=== PATIENT | female | born 1935 | race Caucasian/White ===

== ENCOUNTER 2019-12-27 18:29 | Inpatient (IN) | payer MEDICARE, OTHER ==
--- NOTE | 2019-12-27 20:01 | EDM.PDOC ---
<CatalinaEdgar logan Yolanda - Last Filed: 12/28/19 07:05> ED HPI GENERAL MEDICAL PROBLEM - General Chief Complaint: General Stated Complaint: WEAKNESS Time Seen by Provider: 12/27/19 19:11 Source of Information: Reports: Patient, Family (Daughter, over the phone) History Limitations: Reports: Physical Impairment (Poor historian) - History of Present Illness INITIAL COMMENTS - FREE TEXT/NARRATIVE: Mrs. Rm is a very pleasant 84-year-old woman with a past medical history significant for CAD, status post an HI and a 3-vessel CABG in March 2019, CHF, atrial fibrillation, and colon polyposis, on Eliquis and aspirin, who states that she was feeling well and able to ambulate at 5:30 this morning, but was too weak to ambulate by 6:00. She was seen by her PCP this morning, who ordered a CBC, finding her H/H to be depressed at 7.5/24.0. An outpatient transfusion of a single unit of PRBCs was ordered, however, after the patient was already here, it was discovered that the PRBCs could not be given, due to antibodies. I am told that the blood bank expects to have a compatible unit of PRBCs by tomorrow. The patient was going to be discharged home, however, the staff felt that the patient was too weak to go home, especially since she lives on her own. I spoke with the patient's daughter, who lives in [place], over the phone. She told me that the patient may have been hallucinating last night or this morning, telling her daughter that her furniture had been moved. The patient's daughter does not know if the patient may have moved her own furniture while sleepwalking. She also fell and defecated on herself this morning, requiring the assistance of a relative to clean her up. The daughter states that the patient has not had similar weakness-like symptoms. Here in the ED, the patient's initial BP is found to be modestly elevated at 148/94, otherwise, she is hemodynamically stable, afebrile, saturating 94% on room air. Other than today's weakness, the patient denies having a recent fever, chills, sore throat, ear pain, nasal or sinus congestion, cough, dyspnea, chest pain, palpitations, nausea, vomiting, constipation, diarrhea, abdominal pain, urinary symptoms, recent weight gain or weight loss, recent bloody bowel movements or black bowel movements, recent joint aches, headaches, or rashes. The patient's PCP is Dr. Vivek Rosales. - Related Data Allergies Allergy/AdvReac Type Severity Reaction Status Date / Time amoxicillin Allergy Hives Verified 12/27/19 18:40 Past Medical History HEENT History: Reports: Impaired Vision Cardiovascular History: Reports: Afib, CAD, Heart Failure, High Cholesterol, Hypertension, HI, PVD (bilateral renal artery stenosis) Gastrointestinal History: Reports: Colon Polyp Genitourinary History: Reports: Urinary Incontinence (stress incontinence) Neurological History: Reports: CVA (LLE hemiparesis) Endocrine/Metabolic History: Reports: Other (See Below) (Prediabetes) - Past Surgical History HEENT Surgical History: Reports: Cataract Surgery (bilateral) Cardiovascular Surgical History: Reports: Coronary Artery Bypass (x 3 vessel, Mar 2019), Other (See Below) (Bilateral renal artery stents) GI Surgical History: Reports: Colonoscopy (with polypectomy), EGD (x 1) Female Surgical History: Reports: Section (x 1) Social & Family History - Tobacco Use Smoking Status *Q: Never Smoker - Alcohol Use Alcohol Use History: Yes Alcohol Use Frequency: Rarely - Recreational Drug Use Recreational Drug Use: No - Living Situation & Occupation Living situation: Reports: , Alone Occupation: Retired ED ROS GENERAL - Review of Systems Review Of Systems: Comprehensive ROS is negative, except as noted in HPI. ED EXAM, GENERAL - Physical Exam Exam: See Below Exam Limited By: Other (The patient had difficulty following directions for the neurologic exam, likely due to hard of hearing and misunderstanding) General Appearance: Alert, WD/WN, No Apparent Distress Eye Exam: Bilateral Eye: EOMI, Normal Inspection, PERRL (s/p cataract surgery) Ears: Normal External Exam, Hearing Loss Nose: Normal Inspection Throat/Mouth: Normal Inspection, Normal Lips, Normal Voice, No Airway Compromise Head: Atraumatic, Normocephalic Neck: Normal Inspection, Full Range of Motion Respiratory/Chest: No Respiratory Distress, Lungs Clear, Normal Breath Sounds, No Accessory Muscle Use Cardiovascular: Normal Peripheral Pulses, No Gallop, No JVD, No Murmur, No Rub, Irregularly Irregular (regular rate) Peripheral Pulses: 3+: Radial (L), Radial (R) GI/Abdominal: Normal Bowel Sounds, Soft, Non-Tender, No Organomegaly, No Distention, No Abnormal Bruit, No Mass (Female) Exam: Deferred Rectal (Female) Exam: Normal Exam, Normal Rectal Tone, Heme - Stool Back Exam: Full Range of Motion, Other (Abrasion noted over the midline lower thoracic vertebrae) Extremities: Normal Inspection, Normal Range of Motion, Normal Capillary Refill Neurological: Alert, Oriented, CN II-XII Intact, No Motor/Sensory Deficits, Confused (could be due to PAUMA + misunderstanding) Psychiatric: Normal Affect Skin Exam: Warm, Dry, Intact, Normal Color, No Rash EKG INTERPRETATION EKG Date: 12/27/19 Time: 19:57 Rhythm: A-Fib Rate (Beats/Min): 77 Compton: RAD-Right Compton Deviation P-Wave: Absent QRS: Normal ST-T: Other (< 1mm ST depression in the lateral leads, but no T wave inversions) QT: Normal Comparison: NA - No Prior EKG Course - Re-Assessments/Exams Free Text/Narrative Re-Assessment/Exam: 12/27/19 19:49 As above, the patient states that she was able to walk around at 5:30 this morning, but was too weak to walk by 6:00. She saw her PCP this morning, and had a CBC drawn, which found her Hgb be depressed at 7.5. She was sent here for an outpatient single unit transfusion of PRBCs, however, due to antibodies, she was unable to receive the transfusion. Due to generalized weakness, the staff did not feel that she was fit for discharge home, particularly because she lives alone, therefore she was registered in the ED. I had a long conversation with the patient's daughter, Elle, who lives in [place]. I was able to acquire an accurate past medical and surgical history, with the daughter noting that when the patient underwent a colonoscopy this past March, she was found to have one large colon polyp, which was biopsied, plus about 5 smaller colon polyps, that are scheduled to be removed at an upcoming colonoscopy. The patient's daughter is concerned that the patient is anemic due to a GI bleed, however, her rectal exam is hemoccult negative. I explained to the patient's daughter that a hemoglobin of 7.5 should not cause the patient to be weak, rather, her weakness is almost certainly due to something else, such as a UTI. I have therefore ordered a work-up that includes blood work, a urinalysis by quick catheter, orthostatics, a portable chest x-ray, an ECG, and a test for the SARS-CoV-2 virus. 12/27/19 20:53 Portable chest radiograph reviewed. There is cardiomegaly and mild pulmonary vascular congestion. No pleural effusions seen on this AP view. No focal infiltrate. No pneumothorax. Sternotomy wires noted. Formal read per the Radiologist pending. The patient's CBC is remarkable for a H/H depressed at 7.3/24.7. Her anemia is microcytic, hypochromic. The remainder of her CBC is unremarkable. Her CMP is remarkable for a sodium depressed at 126, with a BUN/Cr elevated at 27/1.4. Her blood glucose is elevated at 183. Her TBil is slightly elevated at 1.2, and her AST is slightly elevated at 40 with an ALT normal at 31, and the remainder of her CMP being unremarkable. Her magnesium level is within normal limits at 2.0. Her troponin is significantly elevated at 0.712. Her BNP is significantly elevated at 9222. Her test for the SARS-CoV-2 virus has returned negative. Orthostatics and urinalysis results are still pending. Review of prior labs finds that the patient's BUN/Cr were 10/0.8 on 02/03/2019. There is no prior troponin or BNP to compare. Based on the above, we cannot determine if the patient's elevated troponin is acute or chronic. I will therefore repeat a troponin now, to see if it is trending upward. 12/27/19 21:33 The patient is not orthostatic. 12/27/19 22:17 The patient's repeat troponin has decreased to 0.642. 12/27/19 22:35 The patient's urinalysis is unremarkable. 12/27/19 22:38 At this point, I do not have an explanation as to why the patient is so weak, other than her elevated troponin level, which I believe is higher than one would expect for a Cr of 1.4. Perhaps the patient had a recent cardiac event, resulting in her weakness this morning. I would like to discuss the patient's case with a Saw Runner. I am aware that both [facility] and [facility] are on diversion, however, a Saw Runner may be able to tell me whether or not the patient should be transferred relatively soon for a non- emergent coronary angiogram versus undergo an outpatient stress test. The patient does not have a preference if I call [facility] or [facility]. 12/27/19 22:50 Case discussed with Na at [facility] at 22:40. Case then discussed with Dr. Anderson, Saw Runner on-call at [facility], at 22:45. Due to the patient's anemia and lack of anginal symptoms, he would be reluctant to put a stent in. He recommended that the cause of the anemia should be pursued and treated. She should follow-up with her PCP, and if her symptoms persist, she can then be referred to him. Since this hospital is currently on diversion, the plan will be to keep the patient here in the ED overnight, then receive the PRBC transfusion tomorrow, when available, after which she can be discharged and follow-up with her PCP. 12/27/19 23:48 Considering the patient's case, an anemia work-up may be difficult once she receives the PRBC transfusion, therefore I have ordered an iron level, TIBC, transferrin, ferritin, LDH, folic acid level, vitamin B12 level, and reticulocyte count to be drawn now, for later consideration as to the etiology of the patient's anemia. 12/28/19 07:00 The patient's serum iron level is low at 9. Her transferrin is within normal limits at 330. Her TIBC is elevated at 413. Her transferrin saturation is low at 2%. Her ferritin is within normal limits at 24. Her LDH is elevated at 336. Her folic acid level is within normal limits at 17.6. Her vitamin B12 level is within normal limits at 663. Her reticulocyte count is low at 1.9%. The patient's anemia evaluation indicates iron deficiency. Care of the patient turned over to Dr. Haines at this time, for change of shift. Departure - Departure Disposition: Admitted As Inpatient 68 Clinical Impression: Recurrent falls, Generalized weakness, Chronic atrial fibrillation Anemia Qualifiers: Iron deficiency anemia type: chronic blood loss Congestive heart failure Qualifiers: Heart failure type: diastolic Heart failure chronicity: chronic Qualified Code(s): I50.32 - Chronic diastolic (congestive) heart failure - Discharge Information Referrals: Vivek Rosales MD [Primary Care Provider] - Forms: ED Department Discharge Sepsis Event Note (ED) - Evaluation Sepsis Screening Result: No Definite Risk <Main Haines - Last Filed: 12/28/19 16:52> Course - Vital Signs Last Recorded V/S: Last Vital Signs Temp 36.1 C 12/28/19 08:08 Pulse 89 12/28/19 09:23 Resp 16 12/28/19 09:23 BP 134/64 12/28/19 09:23 Pulse Ox 94 L 12/28/19 09:23 Orthostatic Blood Pressure [ 145/75 Sitting] Orthostatic Blood Pressure [ 133/62 Supine] - Orders/Labs/Meds Orders: Active Orders 24 hr Category Date Time Status Admission Status [Patient Status] [ADT] Routine ADT 12/28/19 16:48 Ordered EKG Documentation Completion [RC] STAT Care 12/27/19 19:35 Active Orthostatic Vital Signs [RC] STAT Care 12/27/19 19:45 Active PACKED CELLS [RED BLOOD CELLS LP] [BBK] Stat Lab 12/28/19 12:25 Ordered TYPE AND SCREEN [BBK] Stat Lab 12/28/19 12:25 Ordered Transfuse Red Blood Cells [COMM] Urgent Oth 12/28/19 12:25 Ordered Labs: Laboratory Tests 12/27/19 12/27/19 12/27/19 Range/Units 19:50 19:50 19:50 WBC 9.37 (3.98-10.04) K/mm3 RBC 3.60 L (3.98-5.22) M/mm3 Hgb 7.3 L* D (11.2-15.7) gm/dl Hct 24.7 L (34.1-44.9) % MCV 68.6 L D (79.4-94.8) fl MCH 20.3 L (25.6-32.2) pg MCHC 29.6 L (32.2-35.5) g/dl RDW Std Deviation 45.6 (36.4-46.3) fL Plt Count 254 (182-369) K/mm3 MPV 10.6 (9.4-12.3) fl Neutrophils % (Manual) 85 H (40-60) % Band Neutrophils % 0 (0-10) % Lymphocytes % (Manual) 8 L (20-40) % Atypical Lymphs % 0 % Monocytes % (Manual) 7 (2-10) % Eosinophils % (Manual) 0 L (0.7-5.8) % Basophils % (Manual) 0 L (0.1-1.2) Platelet Estimate Adequate Hypochromasia 2+ moderate Poikilocytosis 3+ marked Anisocytosis 2+ moderate [place] Cells 2+ moderate Acanthocytes (Spur) 2+ moderate RBC Morph Comment Percent Retic (0.50-1.70) % Sodium 126 L (136-145) mEq/L Potassium 4.9 (3.5-5.1) mEq/L Chloride 92 L (98-107) mEq/L Carbon Dioxide 25 (21-32) mEq/L Anion Gap 13.9 (5-15) BUN 27 H (7-18) mg/dL Creatinine 1.4 H (0.55-1.02) mg/dL Est Cr Clr Drug Dosing TNP Estimated GFR (MDRD) 36 (>60) mL/min BUN/Creatinine Ratio 19.3 H (14-18) Glucose 183 H (83-115) mg/dL Calcium 9.0 (8.5-10.1) mg/dL Magnesium 2.0 (1.8-2.4) mg/dl Iron (50-170) ug/dL TIBC (100-400) ug/dL % Saturation (20-55) % Transferrin (202-364) mg/dL Ferritin (8-252) ng/ml Total Bilirubin 1.2 H (0.2-1.0) mg/dL AST 40 H (15-37) U/L ALT 31 (14-59) U/L Alkaline Phosphatase 107 (46-116) U/L Lactate Dehydrogenase (81-234) U/L Troponin I 0.712 H* (0.00-0.056) ng/mL NT-Pro-B Natriuret Pep (0-450) pg/mL Total Protein 6.9 (6.4-8.2) g/dl Albumin 3.4 (3.4-5.0) g/dl Globulin 3.5 gm/dL Albumin/Globulin Ratio 1.0 (1-2) Vitamin B12 (193-986) pg/ml Folate (8.6-58.9) ng/mL TSH 3rd Generation 1.938 (0.358-3.74) uIU/mL Urine Color (Yellow) Urine Appearance (Clear) Urine pH (5.0-8.0) Ur Specific [place] (1.005-1.030) Urine Protein (Negative) Urine Glucose (UA) (Negative) Urine Ketones (Negative) Urine Occult Blood (Negative) Urine Nitrite (Negative) Urine Bilirubin (Negative) Urine Urobilinogen (0.2-1.0) Ur Leukocyte Esterase (Negative) U Hyaline Cast (Auto) (0-5) /lpf Urine RBC (0-5) /hpf Urine WBC (0-5) /hpf Ur Squamous Epith Cells (0-5) /hpf Urine Bacteria (FEW) /hpf Urine Mucus (FEW) /hpf SARS Virus RNA (PCR) (NEGATIVE) 12/27/19 12/27/19 12/27/19 Range/Units 19:50 19:50 19:50 WBC (3.98-10.04) K/mm3 RBC (3.98-5.22) M/mm3 Hgb (11.2-15.7) gm/dl Hct (34.1-44.9) % MCV (79.4-94.8) fl MCH (25.6-32.2) pg MCHC (32.2-35.5) g/dl RDW Std Deviation (36.4-46.3) fL Plt Count (182-369) K/mm3 MPV (9.4-12.3) fl Neutrophils % (Manual) (40-60) % Band Neutrophils % (0-10) % Lymphocytes % (Manual) (20-40) % Atypical Lymphs % % Monocytes % (Manual) (2-10) % Eosinophils % (Manual) (0.7-5.8) % Basophils % (Manual) (0.1-1.2) Platelet Estimate Hypochromasia Poikilocytosis Anisocytosis [place] Cells Acanthocytes (Spur) RBC Morph Comment Percent Retic (0.50-1.70) % Sodium (136-145) mEq/L Potassium (3.5-5.1) mEq/L Chloride (98-107) mEq/L Carbon Dioxide (21-32) mEq/L Anion Gap (5-15) BUN (7-18) mg/dL Creatinine (0.55-1.02) mg/dL Est Cr Clr Drug Dosing Estimated GFR (MDRD) (>60) mL/min BUN/Creatinine Ratio (14-18) Glucose (83-115) mg/dL Calcium (8.5-10.1) mg/dL Magnesium (1.8-2.4) mg/dl Iron 9 L (50-170) ug/dL TIBC 413 H (100-400) ug/dL % Saturation 2 L (20-55) % Transferrin 330 (202-364) mg/dL Ferritin 24 (8-252) ng/ml Total Bilirubin (0.2-1.0) mg/dL AST (15-37) U/L ALT (14-59) U/L Alkaline Phosphatase (46-116) U/L Lactate Dehydrogenase 336 H (81-234) U/L Troponin I (0.00-0.056) ng/mL NT-Pro-B Natriuret Pep 9222 H (0-450) pg/mL Total Protein (6.4-8.2) g/dl Albumin (3.4-5.0) g/dl Globulin gm/dL Albumin/Globulin Ratio (1-2) Vitamin B12 663 (193-986) pg/ml Folate 17.6 (8.6-58.9) ng/mL TSH 3rd Generation (0.358-3.74) uIU/mL Urine Color (Yellow) Urine Appearance (Clear) Urine pH (5.0-8.0) Ur Specific [place] (1.005-1.030) Urine Protein (Negative) Urine Glucose (UA) (Negative) Urine Ketones (Negative) Urine Occult Blood (Negative) Urine Nitrite (Negative) Urine Bilirubin (Negative) Urine Urobilinogen (0.2-1.0) Ur Leukocyte Esterase (Negative) U Hyaline Cast (Auto) (0-5) /lpf Urine RBC (0-5) /hpf Urine WBC (0-5) /hpf Ur Squamous Epith Cells (0-5) /hpf Urine Bacteria (FEW) /hpf Urine Mucus (FEW) /hpf SARS Virus RNA (PCR) (NEGATIVE) 12/27/19 12/27/19 12/27/19 Range/Units 19:50 19:55 20:33 WBC (3.98-10.04) K/mm3 RBC (3.98-5.22) M/mm3 Hgb (11.2-15.7) gm/dl Hct (34.1-44.9) % MCV (79.4-94.8) fl MCH (25.6-32.2) pg MCHC (32.2-35.5) g/dl RDW Std Deviation (36.4-46.3) fL Plt Count (182-369) K/mm3 MPV (9.4-12.3) fl Neutrophils % (Manual) (40-60) % Band Neutrophils % (0-10) % Lymphocytes % (Manual) (20-40) % Atypical Lymphs % % Monocytes % (Manual) (2-10) % Eosinophils % (Manual) (0.7-5.8) % Basophils % (Manual) (0.1-1.2) Platelet Estimate Hypochromasia Poikilocytosis Anisocytosis [place] Cells Acanthocytes (Spur) RBC Morph Comment Percent Retic 1.90 H (0.50-1.70) % Sodium (136-145) mEq/L Potassium (3.5-5.1) mEq/L Chloride (98-107) mEq/L Carbon Dioxide (21-32) mEq/L Anion Gap (5-15) BUN (7-18) mg/dL Creatinine (0.55-1.02) mg/dL Est Cr Clr Drug Dosing Estimated GFR (MDRD) (>60) mL/min BUN/Creatinine Ratio (14-18) Glucose (83-115) mg/dL Calcium (8.5-10.1) mg/dL Magnesium (1.8-2.4) mg/dl Iron (50-170) ug/dL TIBC (100-400) ug/dL % Saturation (20-55) % Transferrin (202-364) mg/dL Ferritin (8-252) ng/ml Total Bilirubin (0.2-1.0) mg/dL AST (15-37) U/L ALT (14-59) U/L Alkaline Phosphatase (46-116) U/L Lactate Dehydrogenase (81-234) U/L Troponin I (0.00-0.056) ng/mL NT-Pro-B Natriuret Pep (0-450) pg/mL Total Protein (6.4-8.2) g/dl Albumin (3.4-5.0) g/dl Globulin gm/dL Albumin/Globulin Ratio (1-2) Vitamin B12 (193-986) pg/ml Folate (8.6-58.9) ng/mL TSH 3rd Generation (0.358-3.74) uIU/mL Urine Color Yellow (Yellow) Urine Appearance Clear (Clear) Urine pH 5.5 (5.0-8.0) Ur Specific [place] 1.020 (1.005-1.030) Urine Protein 1+ H (Negative) Urine Glucose (UA) Negative (Negative) Urine Ketones Negative (Negative) Urine Occult Blood Negative (Negative) Urine Nitrite Negative (Negative) Urine Bilirubin Negative (Negative) Urine Urobilinogen 0.2 (0.2-1.0) Ur Leukocyte Esterase Negative (Negative) U Hyaline Cast (Auto) 0-5 (0-5) /lpf Urine RBC Not seen (0-5) /hpf Urine WBC Not seen (0-5) /hpf Ur Squamous Epith Cells 0-5 (0-5) /hpf Urine Bacteria Moderate H (FEW) /hpf Urine Mucus Few (FEW) /hpf SARS Virus RNA (PCR) Negative (NEGATIVE) 12/27/19 12/28/19 Range/Units 21:10 11:57 WBC (3.98-10.04) K/mm3 RBC (3.98-5.22) M/mm3 Hgb 8.0 L (11.2-15.7) gm/dl Hct 26.9 L (34.1-44.9) % MCV (79.4-94.8) fl MCH (25.6-32.2) pg MCHC (32.2-35.5) g/dl RDW Std Deviation (36.4-46.3) fL Plt Count (182-369) K/mm3 MPV (9.4-12.3) fl Neutrophils % (Manual) (40-60) % Band Neutrophils % (0-10) % Lymphocytes % (Manual) (20-40) % Atypical Lymphs % % Monocytes % (Manual) (2-10) % Eosinophils % (Manual) (0.7-5.8) % Basophils % (Manual) (0.1-1.2) Platelet Estimate Hypochromasia Poikilocytosis Anisocytosis [place] Cells Acanthocytes (Spur) RBC Morph Comment Percent Retic (0.50-1.70) % Sodium (136-145) mEq/L Potassium (3.5-5.1) mEq/L Chloride (98-107) mEq/L Carbon Dioxide (21-32) mEq/L Anion Gap (5-15) BUN (7-18) mg/dL Creatinine (0.55-1.02) mg/dL Est Cr Clr Drug Dosing Estimated GFR (MDRD) (>60) mL/min BUN/Creatinine Ratio (14-18) Glucose (83-115) mg/dL Calcium (8.5-10.1) mg/dL Magnesium (1.8-2.4) mg/dl Iron (50-170) ug/dL TIBC (100-400) ug/dL % Saturation (20-55) % Transferrin (202-364) mg/dL Ferritin (8-252) ng/ml Total Bilirubin (0.2-1.0) mg/dL AST (15-37) U/L ALT (14-59) U/L Alkaline Phosphatase (46-116) U/L Lactate Dehydrogenase (81-234) U/L Troponin I 0.642 H* (0.00-0.056) ng/mL NT-Pro-B Natriuret Pep (0-450) pg/mL Total Protein (6.4-8.2) g/dl Albumin (3.4-5.0) g/dl Globulin gm/dL Albumin/Globulin Ratio (1-2) Vitamin B12 (193-986) pg/ml Folate (8.6-58.9) ng/mL TSH 3rd Generation (0.358-3.74) uIU/mL Urine Color (Yellow) Urine Appearance (Clear) Urine pH (5.0-8.0) Ur Specific [place] (1.005-1.030) Urine Protein (Negative) Urine Glucose (UA) (Negative) Urine Ketones (Negative) Urine Occult Blood (Negative) Urine Nitrite (Negative) Urine Bilirubin (Negative) Urine Urobilinogen (0.2-1.0) Ur Leukocyte Esterase (Negative) U Hyaline Cast (Auto) (0-5) /lpf Urine RBC (0-5) /hpf Urine WBC (0-5) /hpf Ur Squamous Epith Cells (0-5) /hpf Urine Bacteria (FEW) /hpf Urine Mucus (FEW) /hpf SARS Virus RNA (PCR) (NEGATIVE) - Re-Assessments/Exams Free Text/Narrative Re-Assessment/Exam: I have spoken with Dr. Killian on-call hospitalist at this time and he is agreed to admission. At present the hospital was on diversion but there is been a few discharges and once the bed becomes available i.e. cleaned she will be transferred to the [facility] floor. We are waiting definitive antibody testing on her blood as she has antibodies to blood. Once these are available to us she will be crossmatched for 2 units and receive each unit over 3 to 4 hours. 12/28/19 12:20 Free Text/Narrative Re-Assessment/Exam: 12/28/19 12:53 lab called over and indicated that the 2 units of packed cells will not likely be ready until tomorrow. It was hopeful that they would be available tonight. 12/28/19 15:58 remains in the ED as bed on [facility] is not yet cleaned or available to her. 12/28/19 16:50 bed has now become available on [facility] and she will be admitted to the [facility] surgical unit on telemetry. Departure - Departure Time of Disposition: 16:50 Condition: Poor - Discharge Information *PRESCRIPTION DRUG MONITORING PROGRAM REVIEWED*: Not Applicable *COPY OF PRESCRIPTION DRUG MONITORING REPORT IN PATIENT JAMEY: Not Applicable Sepsis Event Note (ED) - Focused Exam Vital Signs: Vital Signs Temp Pulse Resp BP Pulse Ox 12/28/19 09:23 89 16 134/64 94 L 12/28/19 08:08 36.1 C 89 22 H 147/62 H 93 L - My Orders Last 24 Hours: My Active Orders 12/28/19 12:25 PACKED CELLS [RED BLOOD CELLS LP] [BBK] Stat TYPE AND SCREEN [BBK] Stat Transfuse Red Blood Cells [COMM] Urgent 12/28/19 16:48 Admission Status [Patient Status] [ADT] Routine - Assessment/Plan Last 24 Hours: My Active Orders 12/28/19 12:25 PACKED CELLS [RED BLOOD CELLS LP] [BBK] Stat TYPE AND SCREEN [BBK] Stat Transfuse Red Blood Cells [COMM] Urgent 12/28/19 16:48 Admission Status [Patient Status] [ADT] Routine
--- NOTE | 2019-12-28 05:46 | CR ---
Chest: Portable view of the chest was obtained. Comparison: No prior chest imaging. Heart size is slightly enlarged. Previous sternotomy is noted. Tortuous thoracic aorta is present. Lungs are clear with no acute parenchymal change. Bony structures are osteopenic. Impression: 1. Slight cardiomegaly with prior sternotomy. 2. Nothing acute is otherwise seen. Diagnostic code #2 This report was dictated in MDT
[2019-12-28] MEDS ORDERED: Acetaminophen/HYDROcodone 325-5 MG Tab PO PRN (17:12)
[2019-12-28] MEDS ORDERED: hydrALAZINE 20 MG/ML SDV IVPUSH PRN (17:12)
[2019-12-28] MEDS ORDERED: diphenhydrAMINE 50 MG/ML SDV IVPUSH PRN (17:12)
[2019-12-28] MEDS ORDERED: Ondansetron 4 MG/2 ML SDV IVPUSH PRN (17:12)
[2019-12-28] MEDS ORDERED: Acetaminophen 650 MG Supp RECTAL PRN (17:12)
[2019-12-28] MEDS ORDERED: Furosemide 40 MG/4 ML VIAL IVPUSH ONE (17:12)
--- NOTE | 2019-12-28 17:44 | PCM.HP.2 ---
H&P History of Present Illness - General Date of Service: 12/28/19 Admit Problem/Dx: Admission Diagnosis/Problem Admission Diagnosis/Problem Fall at home, symptomatic anemia - History of Present Illness Initial Comments - Free Text/Narative: The patient is an 84 yo female, PCP Dr. Rosales, with a past medical history of atrial fibrillation anticoagulated on eliquis, CAT s/p GA and CABG x3 in Mar 2019, systolic CHF, and colon polyposis. The patient was brought to the ER yesterday evening by her sister after experiencing a fall at home. At about 5AM on 12/26, the patient was up and walking and feeling fine but by 6pm, the patient started feeling so weak she got up to go to the bathroom and collapsed down to the ground. She does not feel like she lost consciousness but she cant remember exactly what happened when she collapsed. She did urinate and defecate on self. States she had to go so bad but was too weak to get up after collapsing. She denies chest pain, shortness of breath, palpitations. She has had increased swelling in legs over past couple of days. She denies noticing blood in stool or urine. She has not been vomiting. No fevers, chills, or cough. No recent weight gain or loss. She went to her PCP in the AM who ordered CBC, found Hgb 7.5 and sent patient to ED for PRBC transfusion. In the ED, vital signs were good with BP 148/94. EKG showed rate controlled atrial fibrillation, HR 77. Orthostatic vitals were done and were negative for orthostasis. WBC was 9.37, Hgb low at 7.3, Hct 24.7, platelet count 254. Iron level low at 9, transferrin normal, TIBC elevated at 413, ferritin normal, transferrin saturation low at 2%, folic acid normal, B12 normal, reticulocyte count low. Troponin was found elevated at 0.71. The case was discussed between Dr. Arnold, ER doctor, and Dr. Anderson, type bar and segment assembler operational risk manager at [facility] who stated since patient is anemic and has no anginal symptoms, he would be reluctant to place stent and recommended treating anemia and if symptoms persist, refer to PCP. Second troponin was decreased at 0.64. 1 unit of PRBCs was given but unfortunately, patient has antibodies and another blood transfusion will not get here until tomorrow. The patient continues to deny shortness of breath, dizziness, lightheadedness, chest pain, or palpitatio ns. She has not noticed blood or dark in stools. Last time she took eliquis and aspirin was Yesterday AM. - Related Data Allergies/Adverse Reactions: Allergies Allergy/AdvReac Type Severity Reaction Status Date / Time amoxicillin Allergy Hives Verified 12/27/19 18:40 Home Medications: Home Meds Acetaminophen [Tylenol Extra Strength] 500 mg pe PO BID PRN 12/28/19 [History] Apixaban [Eliquis] 5 mg PO BID 12/28/19 [History] Aspirin 81 mg PO DAILY 12/28/19 [History] Benazepril [Lotensin] 10 mg PO DAILY 12/28/19 [History] Furosemide [Lasix] 20 mg PO DAILY 12/28/19 [History] Metoprolol Tartrate 12.5 mg PO BID 12/28/19 [History] Nitroglycerin [Nitrostat] 0.4 mg SL ASDIRECTED 12/28/19 [History] Pantoprazole Sodium [Protonix] 40 mg PO DAILY 12/28/19 [History] Potassium Chloride [Klor-Con M20] 20 meq PO DAILY 12/28/19 [History] amLODIPine [Norvasc] 10 mg PO DAILY 12/28/19 [History] atorvaSTATin Calcium [Lipitor] 40 mg PO DAILY 12/28/19 [History] Past Medical History HEENT History: Reports: Impaired Vision Cardiovascular History: Reports: Afib, CAD, Heart Failure, High Cholesterol, Hypertension, GA, PVD (bilateral renal artery stenosis) Gastrointestinal History: Reports: Colon Polyp Genitourinary History: Reports: Urinary Incontinence (stress incontinence) Neurological History: Reports: CVA (LLE hemiparesis) Endocrine/Metabolic History: Reports: Other (See Below) (Prediabetes) - Past Surgical History HEENT Surgical History: Reports: Cataract Surgery (bilateral) Cardiovascular Surgical History: Reports: Coronary Artery Bypass (x 3 vessel, Mar 2019), Other (See Below) (Bilateral renal artery stents) GI Surgical History: Reports: Colonoscopy (with polypectomy), EGD (x 1) Female Surgical History: Reports: Section (x 1) Social & Family History - Tobacco Use Smoking Status *Q: Never Smoker - Recreational Drug Use Recreational Drug Use: No - Living Situation & Occupation Living situation: Reports: , Alone Occupation: Retired H&P Review of Systems - Review of Systems: Review Of Systems: Comprehensive ROS is negative, except as noted in HPI. Exam - Exam Exam: See Below - Vital Signs Vital Signs: Last Vital Signs Temp 97.0 F 12/28/19 08:08 Pulse 89 12/28/19 09:23 Resp 16 12/28/19 09:23 BP 134/64 12/28/19 09:23 Pulse Ox 94 L 12/28/19 09:23 Orthostatic Blood Pressure [ 145/75 Sitting] Orthostatic Blood Pressure [ 133/62 Supine] Weight: 140 lb - Exam General: Alert, Oriented, Cooperative, Other (Pale) HEENT: Conjunctiva Clear, Other (Dry oral mucosa) Lungs: Clear to Auscultation, Normal Respiratory Effort. No: Crackles, Rales, Rhonchi Cardiovascular: Regular Rate (HR 70 BPM), Other (Irregular rhythm). No: Systolic Murmur, Diastolic Murmur GI/Abdominal Exam: Normal Bowel Sounds, Soft, Non-Tender, No Distention Extremities: Normal Inspection, No Pedal Edema (2+ pedal edema), Normal Capillary Refill Peripheral Pulses: 2+: Popliteal (L), Popliteal (R) Skin: Warm, Dry, Intact Neurological: Normal Speech Neuro Extensive - Mental Status: Alert, Oriented x3, Normal Mood/Affect - Patient Data Lab Results Last 24 hrs: Laboratory Results - last 24 hr 12/27/19 12/27/19 12/27/19 Range/Units 19:50 19:50 19:50 WBC 9.37 (3.98-10.04) K/mm3 RBC 3.60 L (3.98-5.22) M/mm3 Hgb 7.3 L* D (11.2-15.7) gm/dl Hct 24.7 L (34.1-44.9) % MCV 68.6 L D (79.4-94.8) fl MCH 20.3 L (25.6-32.2) pg MCHC 29.6 L (32.2-35.5) g/dl RDW Std Deviation 45.6 (36.4-46.3) fL Plt Count 254 (182-369) K/mm3 MPV 10.6 (9.4-12.3) fl Neutrophils % (Manual) 85 H (40-60) % Band Neutrophils % 0 (0-10) % Lymphocytes % (Manual) 8 L (20-40) % Atypical Lymphs % 0 % Monocytes % (Manual) 7 (2-10) % Eosinophils % (Manual) 0 L (0.7-5.8) % Basophils % (Manual) 0 L (0.1-1.2) Platelet Estimate Adequate Hypochromasia 2+ moderate Poikilocytosis 3+ marked Anisocytosis 2+ moderate Jacobo Cells 2+ moderate Acanthocytes (Spur) 2+ moderate RBC Morph Comment Percent Retic (0.50-1.70) % Sodium 126 L (136-145) mEq/L Potassium 4.9 (3.5-5.1) mEq/L Chloride 92 L (98-107) mEq/L Carbon Dioxide 25 (21-32) mEq/L Anion Gap 13.9 (5-15) BUN 27 H (7-18) mg/dL Creatinine 1.4 H (0.55-1.02) mg/dL Est Cr Clr Drug Dosing TNP Estimated GFR (MDRD) 36 (>60) mL/min BUN/Creatinine Ratio 19.3 H (14-18) Glucose 183 H (83-115) mg/dL Calcium 9.0 (8.5-10.1) mg/dL Magnesium 2.0 (1.8-2.4) mg/dl Iron (50-170) ug/dL TIBC (100-400) ug/dL % Saturation (20-55) % Transferrin (202-364) mg/dL Ferritin (8-252) ng/ml Total Bilirubin 1.2 H (0.2-1.0) mg/dL AST 40 H (15-37) U/L ALT 31 (14-59) U/L Alkaline Phosphatase 107 (46-116) U/L Lactate Dehydrogenase (81-234) U/L Troponin I 0.712 H* (0.00-0.056) ng/mL NT-Pro-B Natriuret Pep (0-450) pg/mL Total Protein 6.9 (6.4-8.2) g/dl Albumin 3.4 (3.4-5.0) g/dl Globulin 3.5 gm/dL Albumin/Globulin Ratio 1.0 (1-2) Vitamin B12 (193-986) pg/ml Folate (8.6-58.9) ng/mL TSH 3rd Generation 1.938 (0.358-3.74) uIU/mL Urine Color (Yellow) Urine Appearance (Clear) Urine pH (5.0-8.0) Ur Specific [place] (1.005-1.030) Urine Protein (Negative) Urine Glucose (UA) (Negative) Urine Ketones (Negative) Urine Occult Blood (Negative) Urine Nitrite (Negative) Urine Bilirubin (Negative) Urine Urobilinogen (0.2-1.0) Ur Leukocyte Esterase (Negative) U Hyaline Cast (Auto) (0-5) /lpf Urine RBC (0-5) /hpf Urine WBC (0-5) /hpf Ur Squamous Epith Cells (0-5) /hpf Urine Bacteria (FEW) /hpf Urine Mucus (FEW) /hpf SARS Virus RNA (PCR) (NEGATIVE) 12/27/19 12/27/19 12/27/19 Range/Units 19:50 19:50 19:50 WBC (3.98-10.04) K/mm3 RBC (3.98-5.22) M/mm3 Hgb (11.2-15.7) gm/dl Hct (34.1-44.9) % MCV (79.4-94.8) fl MCH (25.6-32.2) pg MCHC (32.2-35.5) g/dl RDW Std Deviation (36.4-46.3) fL Plt Count (182-369) K/mm3 MPV (9.4-12.3) fl Neutrophils % (Manual) (40-60) % Band Neutrophils % (0-10) % Lymphocytes % (Manual) (20-40) % Atypical Lymphs % % Monocytes % (Manual) (2-10) % Eosinophils % (Manual) (0.7-5.8) % Basophils % (Manual) (0.1-1.2) Platelet Estimate Hypochromasia Poikilocytosis Anisocytosis [place] Cells Acanthocytes (Spur) RBC Morph Comment Percent Retic (0.50-1.70) % Sodium (136-145) mEq/L Potassium (3.5-5.1) mEq/L Chloride (98-107) mEq/L Carbon Dioxide (21-32) mEq/L Anion Gap (5-15) BUN (7-18) mg/dL Creatinine (0.55-1.02) mg/dL Est Cr Clr Drug Dosing Estimated GFR (MDRD) (>60) mL/min BUN/Creatinine Ratio (14-18) Glucose (83-115) mg/dL Calcium (8.5-10.1) mg/dL Magnesium (1.8-2.4) mg/dl Iron 9 L (50-170) ug/dL TIBC 413 H (100-400) ug/dL % Saturation 2 L (20-55) % Transferrin 330 (202-364) mg/dL Ferritin 24 (8-252) ng/ml Total Bilirubin (0.2-1.0) mg/dL AST (15-37) U/L ALT (14-59) U/L Alkaline Phosphatase (46-116) U/L Lactate Dehydrogenase 336 H (81-234) U/L Troponin I (0.00-0.056) ng/mL NT-Pro-B Natriuret Pep 9222 H (0-450) pg/mL Total Protein (6.4-8.2) g/dl Albumin (3.4-5.0) g/dl Globulin gm/dL Albumin/Globulin Ratio (1-2) Vitamin B12 663 (193-986) pg/ml Folate 17.6 (8.6-58.9) ng/mL TSH 3rd Generation (0.358-3.74) uIU/mL Urine Color (Yellow) Urine Appearance (Clear) Urine pH (5.0-8.0) Ur Specific [place] (1.005-1.030) Urine Protein (Negative) Urine Glucose (UA) (Negative) Urine Ketones (Negative) Urine Occult Blood (Negative) Urine Nitrite (Negative) Urine Bilirubin (Negative) Urine Urobilinogen (0.2-1.0) Ur Leukocyte Esterase (Negative) U Hyaline Cast (Auto) (0-5) /lpf Urine RBC (0-5) /hpf Urine WBC (0-5) /hpf Ur Squamous Epith Cells (0-5) /hpf Urine Bacteria (FEW) /hpf Urine Mucus (FEW) /hpf SARS Virus RNA (PCR) (NEGATIVE) 12/27/19 12/27/19 12/27/19 Range/Units 19:50 19:55 20:33 WBC (3.98-10.04) K/mm3 RBC (3.98-5.22) M/mm3 Hgb (11.2-15.7) gm/dl Hct (34.1-44.9) % MCV (79.4-94.8) fl MCH (25.6-32.2) pg MCHC (32.2-35.5) g/dl RDW Std Deviation (36.4-46.3) fL Plt Count (182-369) K/mm3 MPV (9.4-12.3) fl Neutrophils % (Manual) (40-60) % Band Neutrophils % (0-10) % Lymphocytes % (Manual) (20-40) % Atypical Lymphs % % Monocytes % (Manual) (2-10) % Eosinophils % (Manual) (0.7-5.8) % Basophils % (Manual) (0.1-1.2) Platelet Estimate Hypochromasia Poikilocytosis Anisocytosis Jacobo Cells Acanthocytes (Spur) RBC Morph Comment Percent Retic 1.90 H (0.50-1.70) % Sodium (136-145) mEq/L Potassium (3.5-5.1) mEq/L Chloride (98-107) mEq/L Carbon Dioxide (21-32) mEq/L Anion Gap (5-15) BUN (7-18) mg/dL Creatinine (0.55-1.02) mg/dL Est Cr Clr Drug Dosing Estimated GFR (MDRD) (>60) mL/min BUN/Creatinine Ratio (14-18) Glucose (83-115) mg/dL Calcium (8.5-10.1) mg/dL Magnesium (1.8-2.4) mg/dl Iron (50-170) ug/dL TIBC (100-400) ug/dL % Saturation (20-55) % Transferrin (202-364) mg/dL Ferritin (8-252) ng/ml Total Bilirubin (0.2-1.0) mg/dL AST (15-37) U/L ALT (14-59) U/L Alkaline Phosphatase (46-116) U/L Lactate Dehydrogenase (81-234) U/L Troponin I (0.00-0.056) ng/mL NT-Pro-B Natriuret Pep (0-450) pg/mL Total Protein (6.4-8.2) g/dl Albumin (3.4-5.0) g/dl Globulin gm/dL Albumin/Globulin Ratio (1-2) Vitamin B12 (193-986) pg/ml Folate (8.6-58.9) ng/mL TSH 3rd Generation (0.358-3.74) uIU/mL Urine Color Yellow (Yellow) Urine Appearance Clear (Clear) Urine pH 5.5 (5.0-8.0) Ur Specific [place] 1.020 (1.005-1.030) Urine Protein 1+ H (Negative) Urine Glucose (UA) Negative (Negative) Urine Ketones Negative (Negative) Urine Occult Blood Negative (Negative) Urine Nitrite Negative (Negative) Urine Bilirubin Negative (Negative) Urine Urobilinogen 0.2 (0.2-1.0) Ur Leukocyte Esterase Negative (Negative) U Hyaline Cast (Auto) 0-5 (0-5) /lpf Urine RBC Not seen (0-5) /hpf Urine WBC Not seen (0-5) /hpf Ur Squamous Epith Cells 0-5 (0-5) /hpf Urine Bacteria Moderate H (FEW) /hpf Urine Mucus Few (FEW) /hpf SARS Virus RNA (PCR) Negative (NEGATIVE) 12/27/19 12/28/19 Range/Units 21:10 11:57 WBC (3.98-10.04) K/mm3 RBC (3.98-5.22) M/mm3 Hgb 8.0 L (11.2-15.7) gm/dl Hct 26.9 L (34.1-44.9) % MCV (79.4-94.8) fl MCH (25.6-32.2) pg MCHC (32.2-35.5) g/dl RDW Std Deviation (36.4-46.3) fL Plt Count (182-369) K/mm3 MPV (9.4-12.3) fl Neutrophils % (Manual) (40-60) % Band Neutrophils % (0-10) % Lymphocytes % (Manual) (20-40) % Atypical Lymphs % % Monocytes % (Manual) (2-10) % Eosinophils % (Manual) (0.7-5.8) % Basophils % (Manual) (0.1-1.2) Platelet Estimate Hypochromasia Poikilocytosis Anisocytosis Jacobo Cells Acanthocytes (Spur) RBC Morph Comment Percent Retic (0.50-1.70) % Sodium (136-145) mEq/L Potassium (3.5-5.1) mEq/L Chloride (98-107) mEq/L Carbon Dioxide (21-32) mEq/L Anion Gap (5-15) BUN (7-18) mg/dL Creatinine (0.55-1.02) mg/dL Est Cr Clr Drug Dosing Estimated GFR (MDRD) (>60) mL/min BUN/Creatinine Ratio (14-18) Glucose (83-115) mg/dL Calcium (8.5-10.1) mg/dL Magnesium (1.8-2.4) mg/dl Iron (50-170) ug/dL TIBC (100-400) ug/dL % Saturation (20-55) % Transferrin (202-364) mg/dL Ferritin (8-252) ng/ml Total Bilirubin (0.2-1.0) mg/dL AST (15-37) U/L ALT (14-59) U/L Alkaline Phosphatase (46-116) U/L Lactate Dehydrogenase (81-234) U/L Troponin I 0.642 H* (0.00-0.056) ng/mL NT-Pro-B Natriuret Pep (0-450) pg/mL Total Protein (6.4-8.2) g/dl Albumin (3.4-5.0) g/dl Globulin gm/dL Albumin/Globulin Ratio (1-2) Vitamin B12 (193-986) pg/ml Folate (8.6-58.9) ng/mL TSH 3rd Generation (0.358-3.74) uIU/mL Urine Color (Yellow) Urine Appearance (Clear) Urine pH (5.0-8.0) Ur Specific [place] (1.005-1.030) Urine Protein (Negative) Urine Glucose (UA) (Negative) Urine Ketones (Negative) Urine Occult Blood (Negative) Urine Nitrite (Negative) Urine Bilirubin (Negative) Urine Urobilinogen (0.2-1.0) Ur Leukocyte Esterase (Negative) U Hyaline Cast (Auto) (0-5) /lpf Urine RBC (0-5) /hpf Urine WBC (0-5) /hpf Ur Squamous Epith Cells (0-5) /hpf Urine Bacteria (FEW) /hpf Urine Mucus (FEW) /hpf SARS Virus RNA (PCR) (NEGATIVE) Result Diagrams: 12/28/19 11:57 12/27/19 19:50 Sepsis Event Note - Evaluation Sepsis Screening Result: No Definite Risk - Focused Exam Vital Signs: Vital Signs Temp Pulse Resp BP Pulse Ox 12/28/19 09:23 89 16 134/64 94 L 12/28/19 08:08 97.0 F 89 22 H 147/62 H 93 L - Problem List (1) Systolic CHF SNOMED Code(s): 33413241, 234869710 ICD Code: I50.20 - UNSPECIFIED SYSTOLIC (CONGESTIVE) HEART FAILURE Status: Acute Current Visit: Yes (2) Hypercholesterolemia SNOMED Code(s): 67222028 ICD Code: E78.00 - PURE HYPERCHOLESTEROLEMIA, UNSPECIFIED Status: Acute Current Visit: Yes (3) Hypertension SNOMED Code(s): 91013328 ICD Code: I10 - ESSENTIAL (PRIMARY) HYPERTENSION Status: Acute Current Visit: Yes (4) Acute kidney failure SNOMED Code(s): 98536923 ICD Code: N17.9 - ACUTE KIDNEY FAILURE, UNSPECIFIED Status: Acute Current Visit: Yes (5) Anemia SNOMED Code(s): 722912352 ICD Code: D64.9 - ANEMIA, UNSPECIFIED Status: Acute Current Visit: Yes Qualifiers: Iron deficiency anemia type: chronic blood loss (6) Chronic atrial fibrillation SNOMED Code(s): 927815034 ICD Code: I48.20 - CHRONIC ATRIAL FIBRILLATION, UNSPECIFIED Status: Acute Current Visit: Yes (7) Generalized weakness SNOMED Code(s): 03047702 ICD Code: R53.1 - WEAKNESS Status: Acute Current Visit: Yes (8) Demand ischemia SNOMED Code(s): 272240606, 283216485367491 ICD Code: I24.8 - OTHER FORMS OF ACUTE ISCHEMIC HEART DISEASE Status: Acute Current Visit: Yes (9) Recurrent falls SNOMED Code(s): 154855555 ICD Code: R29.6 - REPEATED FALLS Status: Acute Current Visit: Yes (10) CAD (coronary artery disease) SNOMED Code(s): 47714219 ICD Code: I25.10 - ATHSCL HEART DISEASE OF [place] CORONARY ARTERY W/O ANG PCTRS Status: Acute Current Visit: Yes (11) Hx of CABG SNOMED Code(s): 490679993, 943326254 ICD Code: Z95.1 - PRESENCE OF AORTOCORONARY BYPASS GRAFT Status: Acute Current Visit: Yes (12) History of CVA (cerebrovascular accident) SNOMED Code(s): 760065372 ICD Code: Z86.73 - PRSNL HX OF TIA (TIA), AND CEREB INFRC W/O RESID DEFICITS Status: Acute Current Visit: Yes (13) Hyponatremia SNOMED Code(s): 79219117 ICD Code: E87.1 - HYPO-OSMOLALITY AND HYPONATREMIA Status: Acute Current Visit: Yes Problem List Initiated/Reviewed/Updated: Yes Assessment/Plan Comment:: Acute symptomatic anemia. Weakness Fall The patient reported to ER after severe weakness and fall No fevers, no chills, no chest pain reported No nausea, vomiting, or abdominal pain The patient takes eliquis 5mg oral BID and aspirin 81mg oral daily Hgb low at 7.3, Hct 24.7, platelet count 254. Iron level low at 9, transferrin normal, TIBC elevated at 413, ferritin normal, transferrin saturation low at 2%, folic acid normal, B12 normal, reticulocyte count low A year ago, the patient had normal H&H 1 unit PRBC has been given PLAN - Check H/H now and in AM - Check stool occult - Patient needs lasix 20mg IV x1 after PRBC unit was given - Waiting on second PRBC unit - Stool occult ordered - Continuous cardiac monitoring - Will start enforced anti-acid therapy with Protonix 40 mg IVP Q12 hours and Carafate 2 gr qhs. - NS at 50ml/hr Acute renal failure. Likely secondary to blood loss and hypovolemia. Cr 1.4, was 0.8 9 months ago UA negative for infection PLAN: - IVF and blood product transfusion as above. - Recheck BMP in the AM Hyponatremia. Sodium is 127. Patient has some third spacing PLAN - Giving lasix 20mg IV x1 now - Starting NS at just 50ml/hr - Recheck BMP this evening and in AM Demand Ischemia Troponin 0.71 then 0.64 on repeat Osd Clerk consulted and he recommends taking care of anemia, no catheterization Patient is without chest pain or shortness of breath EKG without ST elevation or depression PLAN - Vital signs q4h - Continuous cardiac monitoring - Correct anemia Hypertension BP in ED is 140s-150s systolic The patient is on metoprolol tartrate 12.5mg oral BID, benazepril 10mg oral daily, amlodipine 5mg oral daily PLAN - Continue metoprolol tartrate 12.5mg oral BID. - Hold amlodipine and benazepril Dyslipidemia Patient takes atorvastatin 40mg oral daily PLAN - Continue atorvastatin 40mg oral daily CAD Hx CABG 03/2019 Hx CVA w/ left leg hemiparesis Case was discussed with type bar and segment assembler as stated above. Pt on aspirin and eliquis at home. PLAN - follow up appointment with type bar and segment assembler on discharge - Stop aspirin and eliquis for 2 weeks on discharge Atrial fibrillation Rate controlled on metoprolol tartrate 12.5mg oral BID Last dose of eliquis was yesterday morning PLAN - Continue metoprolol - Continuous cardiac monitoring - Stop eliquis and hold for at least 2 weeks on discharge - Will discuss eliquis with cardiology on discharge and decide if just continuing aspirin only. Systolic CHF Patient does have 2+ pitting edema of LEs but appears more third spacing No increased JVP She takes lasix 20mg oral daily PLAN - Patient will receive lasix 20mg IV x1 now - Easy on the fluids, just running at 50ml/hr - She will receive lasix IV x1 after second PRBC as well PROPHYLAXIS GI- Pantoprazole 40mg BID DVT- Stockings, no anticoagulation as patient has low hemoglobin, probable GI bleed CODE STATUS FULL CODE SOCIAL Pt lives at home by herself. Uses walker to get around. Daughter lives in [place] DISPOSITION Patient is admitted on observation to the hospital for acute anemia, acute renal failure, demand ischemia. Started on fluids, GI prophylaxis. PT consulted. She will remain in hospital for 1-2 days. - Mortality Measure Prognosis:: Good
[2019-12-28] MEDS ORDERED: Sodium Chloride 0.9% 1,000 ML IV SCH (17:45)
[2019-12-28] MEDS: Pantoprazole 40 MG Tab.CR PO SCH (18:28)
[2019-12-28] MEDS: Metoprolol Tartrate 25 MG Tab PO SCH (21:46)
[2019-12-28] MEDS: Sucralfate 1 GM Tab PO SCH (21:48)
[2019-12-29] MEDS: Pantoprazole 40 MG Tab.CR PO SCH ×2 (07:15→16:51)
[2019-12-29] MEDS ORDERED: Magnesium Hydroxide 400 MG/5 ML Susp 30 ML Cup PO ONE (08:06)
[2019-12-29] MEDS ORDERED: Rosuvastatin 10 MG Tab PO SCH (09:00)
[2019-12-29] MEDS: Metoprolol Tartrate 25 MG Tab PO SCH ×2 (09:20→20:44)
--- NOTE | 2019-12-29 13:28 | PCM.PN ---
- General Info Date of Service: 12/29/19 Admission Dx/Problem (Free Text): Admission Diagnosis/Problem Admission Diagnosis/Problem Fall at home, symptomatic anemia Subjective Update: The patient is seen by me at bedside. This morning she worked with physical therapy and does continue to feel weak. Otherwise she is without shortness of breath, dizziness, or lightheadedness. She talked to me about hallucinations the other night and says she had a dream people were moving things all around in her house but realizes it just was a dream though felt very real. Today she does not feel confused. Her legs feel less swollen. She had a small BM this morning that did not have obvious blood in it, sent for stool occult. - Patient Data Vitals - Most Recent: Last Vital Signs Temp 98.1 F 12/29/19 09:19 Pulse 74 12/29/19 09:20 Resp 18 12/29/19 09:19 BP 142/82 H 12/29/19 09:20 Pulse Ox 95 12/29/19 09:19 Orthostatic Blood Pressure [ 145/75 Sitting] Orthostatic Blood Pressure [ 133/62 Supine] Weight - Most Recent: 137 lb 12.8 oz I&O - Last 24 Hours: Intake & Output 12/28/19 12/29/19 12/29/19 22:59 06:59 14:59 Intake Total 300 300 120 Output Total 1600 Balance 300 -1300 120 Lab Results Last 24 Hours: Laboratory Results - last 24 hr 12/28/19 12/28/19 12/29/19 Range/Units 19:20 19:22 05:25 WBC 6.65 (3.98-10.04) K/mm3 RBC 3.67 L (3.98-5.22) M/mm3 Hgb 8.3 L 7.4 L (11.2-15.7) gm/dl Hct 27.9 L 25.5 L (34.1-44.9) % MCV 69.5 L (79.4-94.8) fl MCH 20.2 L (25.6-32.2) pg MCHC 29.0 L (32.2-35.5) g/dl RDW Std Deviation 46.0 (36.4-46.3) fL Plt Count 251 (182-369) K/mm3 MPV 10.5 (9.4-12.3) fl Neut % (Auto) 82.4 H (34.0-71.1) % Lymph % (Auto) 7.2 L (19.3-51.7) % Stark % (Auto) 9.6 (4.7-12.5) % Eos % (Auto) 0.5 L (0.7-5.8) Baso % (Auto) 0.0 L (0.1-1.2) % Neut # (Auto) 5.48 (1.56-6.13) K/mm3 Lymph # (Auto) 0.48 L (1.18-3.74) K/mm3 Stark # (Auto) 0.64 H (0.24-0.36) K/mm3 Eos # (Auto) 0.03 L (0.04-0.36) K/mm3 Baso # (Auto) 0.00 L (0.01-0.08) K/mm3 Manual Slide Review Abnormal smear PT (9.7-12.0) SECONDS INR APTT (22-31) SECONDS Sodium 128 L (136-145) mEq/L Potassium 4.4 (3.5-5.1) mEq/L Chloride 94 L (98-107) mEq/L Carbon Dioxide 26 (21-32) mEq/L Anion Gap 12.4 (5-15) BUN 21 H (7-18) mg/dL Creatinine 1.1 H (0.55-1.02) mg/dL Est Cr Clr Drug Dosing 28.32 mL/min Estimated GFR (MDRD) 48 (>60) mL/min BUN/Creatinine Ratio 19.1 H (14-18) Glucose 160 H (83-115) mg/dL Calcium 8.5 (8.5-10.1) mg/dL Phosphorus 2.9 (2.6-4.7) mg/dL Magnesium 1.8 (1.8-2.4) mg/dl 12/29/19 12/29/19 Range/Units 05:25 05:25 WBC (3.98-10.04) K/mm3 RBC (3.98-5.22) M/mm3 Hgb (11.2-15.7) gm/dl Hct (34.1-44.9) % MCV (79.4-94.8) fl MCH (25.6-32.2) pg MCHC (32.2-35.5) g/dl RDW Std Deviation (36.4-46.3) fL Plt Count (182-369) K/mm3 MPV (9.4-12.3) fl Neut % (Auto) (34.0-71.1) % Lymph % (Auto) (19.3-51.7) % Stark % (Auto) (4.7-12.5) % Eos % (Auto) (0.7-5.8) Baso % (Auto) (0.1-1.2) % Neut # (Auto) (1.56-6.13) K/mm3 Lymph # (Auto) (1.18-3.74) K/mm3 Stark # (Auto) (0.24-0.36) K/mm3 Eos # (Auto) (0.04-0.36) K/mm3 Baso # (Auto) (0.01-0.08) K/mm3 Manual Slide Review PT 12.9 H (9.7-12.0) SECONDS INR 1.21 APTT 30 (22-31) SECONDS Sodium 130 L (136-145) mEq/L Potassium 4.0 (3.5-5.1) mEq/L Chloride 96 L (98-107) mEq/L Carbon Dioxide 29 (21-32) mEq/L Anion Gap 9.0 (5-15) BUN 18 (7-18) mg/dL Creatinine 0.9 (0.55-1.02) mg/dL Est Cr Clr Drug Dosing 34.62 mL/min Estimated GFR (MDRD) 60 (>60) mL/min BUN/Creatinine Ratio 20.0 H (14-18) Glucose 156 H (83-115) mg/dL Calcium 8.5 (8.5-10.1) mg/dL Phosphorus (2.6-4.7) mg/dL Magnesium (1.8-2.4) mg/dl Med Orders - Current: Current Medications Acetaminophen (Tylenol) 650 mg PO Q6H PRN PRN Reason: Pain (Mild 1-3) or Fever Acetaminophen (Tylenol) 650 mg RECTAL Q6H PRN PRN Reason: Pain (Mild 1-3) or Fever Hydrocodone Bitart/Acetaminophen ([place] 325-5 Mg) 1 tab PO Q6H PRN PRN Reason: Pain (moderate 4-6) Diphenhydramine HCl (Benadryl) 25 mg IVPUSH Q4H PRN PRN Reason: Restlessness or Allergies Ferrous Sulfate (Ferrous Sulfate) 324 mg PO WITHBREAKFAST [facility] Hydralazine HCl (Apresoline) 10 mg IVPUSH Q6H PRN PRN Reason: Hypertension Metoprolol Tartrate (Lopressor) 12.5 mg PO BID [facility] Last Admin: 12/29/19 09:20 Dose: 12.5 mg Documented by: Ondansetron HCl (Zofran) 4 mg IVPUSH Q4H PRN PRN Reason: Nausea and Vomiting Pantoprazole Sodium (Protonix) 40 mg PO BIDAC [facility] Last Admin: 12/29/19 07:15 Dose: 40 mg Documented by: Senna/Docusate Sodium (Senna Plus) 2 tab PO BID [facility] Last Admin: 12/29/19 09:20 Dose: 2 tab Documented by: Sucralfate (Carafate) 2 gm PO BEDTIME [facility] Last Admin: 12/28/19 21:48 Dose: 2 gm Documented by: Discontinued Medications Furosemide (Lasix) 20 mg IVPUSH ONETIME ONE Stop: 12/28/19 17:13 Last Admin: 12/28/19 18:24 Dose: 20 mg Documented by: Sodium Chloride (Normal Saline) 1,000 mls @ 50 mls/hr IV ASDIRECTED [facility] Last Admin: 12/29/19 04:15 Dose: 50 mls/hr Documented by: Magnesium Hydroxide (Milk Of Magnesia) 30 ml PO ONETIME ONE Stop: 12/29/19 08:07 Last Admin: 12/29/19 09:20 Dose: 30 ml Documented by: Rosuvastatin Calcium (Crestor) 10 mg PO DAILY [facility] - Exam General: Alert, Oriented, Cooperative, No Acute Distress HEENT: Pupils Equal, Pupils Reactive, EOMI Lungs: Clear to Auscultation, Normal Respiratory Effort. No: Rales, Rub, Stridor, Wheezing Cardiovascular: Regular Rate, Other (irregular rhythm) Extremities: Normal Capillary Refill, Pedal Edema (1 + in LLE, trace in RLE) Peripheral Pulses: 2+: Posterior Tibial (L), Posterior Tibial (R) Skin: Warm, Dry, Intact Sepsis Event Note - Evaluation Sepsis Screening Result: No Definite Risk - Focused Exam Vital Signs: Vital Signs Temp Pulse Resp BP Pulse Ox 12/29/19 09:20 74 142/82 H 12/29/19 09:19 98.1 F 74 18 142/82 H 95 12/29/19 04:24 98.2 F 68 18 141/73 H 93 L - Problem List & Annotations (1) Systolic CHF SNOMED Code(s): 77578308, 783241924 Code(s): I50.20 - UNSPECIFIED SYSTOLIC (CONGESTIVE) HEART FAILURE Status: Acute Current Visit: Yes (2) Hypercholesterolemia SNOMED Code(s): 60174167 Code(s): E78.00 - PURE HYPERCHOLESTEROLEMIA, UNSPECIFIED Status: Acute Current Visit: Yes (3) Hypertension SNOMED Code(s): 85212450 Code(s): I10 - ESSENTIAL (PRIMARY) HYPERTENSION Status: Acute Current Visit: Yes (4) Acute kidney failure SNOMED Code(s): 35327865 Code(s): N17.9 - ACUTE KIDNEY FAILURE, UNSPECIFIED Status: Acute Current Visit: Yes (5) Anemia SNOMED Code(s): 523222948 Code(s): D64.9 - ANEMIA, UNSPECIFIED Status: Acute Current Visit: Yes Qualifiers: Iron deficiency anemia type: chronic blood loss (6) Chronic atrial fibrillation SNOMED Code(s): 979118159 Code(s): I48.20 - CHRONIC ATRIAL FIBRILLATION, UNSPECIFIED Status: Acute Current Visit: Yes (7) Generalized weakness SNOMED Code(s): 08608056 Code(s): R53.1 - WEAKNESS Status: Acute Current Visit: Yes (8) Demand ischemia SNOMED Code(s): 278257905, 087731338560640 Code(s): I24.8 - OTHER FORMS OF ACUTE ISCHEMIC HEART DISEASE Status: Acute Current Visit: Yes (9) Recurrent falls SNOMED Code(s): 790070385 Code(s): R29.6 - REPEATED FALLS Status: Acute Current Visit: Yes (10) CAD (coronary artery disease) SNOMED Code(s): 54455651 Code(s): I25.10 - ATHSCL HEART DISEASE OF [place] CORONARY ARTERY W/O ANG PCTRS Status: Acute Current Visit: Yes (11) Hx of CABG SNOMED Code(s): 590211023, 362148236 Code(s): Z95.1 - PRESENCE OF AORTOCORONARY BYPASS GRAFT Status: Acute Current Visit: Yes (12) History of CVA (cerebrovascular accident) SNOMED Code(s): 172720798 Code(s): Z86.73 - PRSNL HX OF TIA (TIA), AND CEREB INFRC W/O RESID DEFICITS Status: Acute Current Visit: Yes (13) Hyponatremia SNOMED Code(s): 58776852 Code(s): E87.1 - HYPO-OSMOLALITY AND HYPONATREMIA Status: Acute Current Visit: Yes - Problem List Review Problem List Initiated/Reviewed/Updated: Yes - Assessment Assessment:: 12/28/2019 The patient reported to ER after severe weakness and fall No fevers, no chills, no chest pain reported No nausea, vomiting, or abdominal pain The patient takes eliquis 5mg oral BID and aspirin 81mg oral daily Hgb low at 7.3, Hct 24.7, platelet count 254. Iron level low at 9, transferrin normal, TIBC elevated at 413, ferritin normal, transferrin saturation low at 2%, folic acid normal, B12 normal, reticulocyte count low A year ago, the patient had normal H&H 1 unit PRBC has been given Likely secondary to blood loss and hypovolemia. Cr 1.4, was 0.8 9 months ago UA negative for infection Sodium is 127. Patient has some third spacing Troponin 0.71 then 0.64 on repeat Ambulatory Technologist consulted and he recommends taking care of anemia, no catheterization Patient is without chest pain or shortness of breath EKG without ST elevation or depression Rate controlled on metoprolol tartrate 12.5mg oral BID Last dose of eliquis was yesterday morning Case was discussed with gas appliance installer as stated above. Pt on aspirin and eliquis at home. Patient does have 2+ pitting edema of LEs but appears more third spacing No increased JVP She takes lasix 20mg oral daily Patient takes atorvastatin 40mg oral daily PLAN - Check H/H now and in AM - Check stool occult - Patient needs lasix 20mg IV x1 after PRBC unit was given - Waiting on second PRBC unit - Stool occult ordered - Continuous cardiac monitoring - Will start enforced anti-acid therapy with Protonix 40 mg IVP Q12 hours and Carafate 2 gr qhs. - NS at 50ml/hr - IVF and blood product transfusion as above. - Continuous cardiac monitoring - Continue metoprolol - Continuous cardiac monitoring - Stop eliquis and hold for at least 2 weeks on discharge - Will discuss eliquis with cardiology on discharge and decide if just continuing aspirin only. - Continue metoprolol tartrate 12.5mg oral BID. - Hold amlodipine and benazepril - Continue atorvastatin 40mg oral daily - follow up appointment with gas appliance installer on discharge 12/29/2019 PT worked with patient. She is not strong enough to go home and needs 24 hour care of group home placement Spoke to daughter who would like patient to have group home or assisted living placement vs taking her home with her before finding place to stay. Lower extremity swelling is improved Patient less confused and feels "normal" today. 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 There is risk in transfusing patient when no obvious active bleed. - Plan Plan:: Acute symptomatic anemia. Weakness Fall - Check CBC in AM - Watch for occult stool results - No transfusions for now due to risk - patient's daughter agrees - Continuous cardiac monitoring - Will start enforced anti-acid therapy with Protonix 40 mg po Q12 hours and Carafate 2 gr qhs. - Discharge possibly wednesday to residential or group home vs home with daughter for further decision Acute renal failure - resolved - Stopping fluids. - Recheck BMP in the AM Hyponatremia.- improving - Recheck BMP in AM Demand Ischemia - Vital signs q4h - Continuous cardiac monitoring - Correct anemia - Daughter is finding name of gas appliance installer who worked with patient in 2018 for F/U appointment Hypertension - Continue metoprolol tartrate 12.5mg oral BID. 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 - Continue metoprolol - Continuous cardiac monitoring Systolic CHF - Lasix 20mg IV as needed for fluid overload PROPHYLAXIS GI- Pantoprazole 40mg BID DVT- Stockings, no anticoagulation as patient has low hemoglobin, probable GI bleed CODE STATUS FULL CODE SOCIAL Pt lives at home by herself. Uses walker to get around. Daughter lives in [place] DISPOSITION Patient is admitted on observation to the hospital for acute anemia, acute renal failure, demand ischemia. Started on fluids, GI prophylaxis. PT consulted. She is too weak for home discharge and hemoglobin remains low. Expected to stay until 12/31 in hospital.
[2019-12-29] MEDS: Ferrous Sulfate 324 MG Tab.EC PO SCH (16:52)
[2019-12-29] MEDS: Ascorbic Acid 500 MG Tab PO SCH (16:52)
[2019-12-29] MEDS: Sucralfate 1 GM Tab PO SCH (20:40)
[2019-12-30] MEDS: Ascorbic Acid 500 MG Tab PO SCH ×2 (06:41→15:02)
[2019-12-30] MEDS: Pantoprazole 40 MG Tab.CR PO SCH ×2 (06:41→15:02)
[2019-12-30] MEDS: Ferrous Sulfate 324 MG Tab.EC PO SCH ×2 (06:42→15:02)
[2019-12-30] MEDS ORDERED: Ferrous Sulfate 324 MG Tab.EC PO SCH (07:00)
[2019-12-30] MEDS ORDERED: Magnesium Sulfate/Water 4 GM in Premix Bag 1 BAG IV ONE (08:50)
[2019-12-30] MEDS ORDERED: Sodium Phosphate 15 MMOLE in Sodium Chloride 0.9% 250 ML IV ONE ×2 (09:00→14:00)
[2019-12-30] MEDS: Metoprolol Tartrate 25 MG Tab PO SCH ×2 (09:50→20:57)
--- NOTE | 2019-12-30 14:56 | PCM.PN ---
- General Info Date of Service: 12/30/19 Admission Dx/Problem (Free Text): Admission Diagnosis/Problem Admission Diagnosis/Problem Fall at home, symptomatic anemia Subjective Update: Patient continues to improve. She has had increased overall strength and appetite. Patient is without complaints. Functional Status: Reports: Pain Controlled - Review of Systems General: Reports: No Symptoms HEENT: Reports: No Symptoms Pulmonary: Reports: No Symptoms Cardiovascular: Reports: No Symptoms Gastrointestinal: Reports: No Symptoms Musculoskeletal: Reports: No Symptoms - Patient Data Vitals - Most Recent: Last Vital Signs Temp 97.5 F 12/30/19 12:12 Pulse 75 12/30/19 12:12 Resp 16 12/30/19 12:12 BP 143/79 H 12/30/19 12:12 Pulse Ox 95 12/30/19 12:12 Orthostatic Blood Pressure [ 145/75 Sitting] Orthostatic Blood Pressure [ 133/62 Supine] Weight - Most Recent: 62.233 kg I&O - Last 24 Hours: Intake & Output 12/29/19 12/30/19 12/30/19 22:59 06:59 14:59 Intake Total 720 500 180 Output Total 1400 1200 Balance -680 -700 180 Lab Results Last 24 Hours: Laboratory Results - last 24 hr 12/30/19 12/30/19 Range/Units 05:25 05:25 WBC 8.03 (3.98-10.04) K/mm3 RBC 3.82 L (3.98-5.22) M/mm3 Hgb 7.8 L (11.2-15.7) gm/dl Hct 26.6 L (34.1-44.9) % MCV 69.6 L (79.4-94.8) fl MCH 20.4 L (25.6-32.2) pg MCHC 29.3 L (32.2-35.5) g/dl RDW Std Deviation 46.4 H (36.4-46.3) fL Plt Count 292 (182-369) K/mm3 MPV 10.6 (9.4-12.3) fl Neut % (Auto) 78.9 H (34.0-71.1) % Lymph % (Auto) 8.6 L (19.3-51.7) % [place] % (Auto) 10.5 (4.7-12.5) % Eos % (Auto) 1.7 (0.7-5.8) Baso % (Auto) 0.1 (0.1-1.2) % Neut # (Auto) 6.33 H (1.56-6.13) K/mm3 Lymph # (Auto) 0.69 L (1.18-3.74) K/mm3 [place] # (Auto) 0.84 H (0.24-0.36) K/mm3 Eos # (Auto) 0.14 (0.04-0.36) K/mm3 Baso # (Auto) 0.01 (0.01-0.08) K/mm3 Manual Slide Review Abnormal smear Sodium 129 L (136-145) mEq/L Potassium 3.8 (3.5-5.1) mEq/L Chloride 94 L (98-107) mEq/L Carbon Dioxide 30 (21-32) mEq/L Anion Gap 8.8 (5-15) BUN 18 (7-18) mg/dL Creatinine 0.7 (0.55-1.02) mg/dL Est Cr Clr Drug Dosing 44.51 mL/min Estimated GFR (MDRD) > 60 (>60) mL/min BUN/Creatinine Ratio 25.7 H (14-18) Glucose 129 H (83-115) mg/dL Calcium 8.6 (8.5-10.1) mg/dL Phosphorus 2.3 L (2.6-4.7) mg/dL Magnesium 1.6 L (1.8-2.4) mg/dl Mikael Results Last 24 Hours: Microbiology 12/29/19 14:20 Stool Occult Blood (MIKAEL) - Final Stool / Feces POSITIVE OCCULT BLOOD REFERENCE RANGE: NEGATIVE Med Orders - Current: Current Medications Acetaminophen (Tylenol) 650 mg PO Q6H PRN PRN Reason: Pain (Mild 1-3) or Fever Acetaminophen (Tylenol) 650 mg RECTAL Q6H PRN PRN Reason: Pain (Mild 1-3) or Fever Hydrocodone Bitart/Acetaminophen ([place] 325-5 Mg) 1 tab PO Q6H PRN PRN Reason: Pain (moderate 4-6) Ascorbic Acid (Vitamin C) 500 mg PO BIDAC [facility] Last Admin: 12/30/19 06:41 Dose: 500 mg Documented by: Diphenhydramine HCl (Benadryl) 25 mg IVPUSH Q4H PRN PRN Reason: Restlessness or Allergies Ferrous Sulfate (Ferrous Sulfate) 324 mg PO BIDAC [facility] Last Admin: 12/30/19 06:42 Dose: 324 mg Documented by: Hydralazine HCl (Apresoline) 10 mg IVPUSH Q6H PRN PRN Reason: Hypertension Sodium Phosphate 15 mmole/ (Sodium Chloride) 255 mls @ 85 mls/hr IV ONETIME ONE Stop: 12/30/19 16:59 Last Admin: 12/30/19 13:18 Dose: 85 mls/hr Documented by: Metoprolol Tartrate (Lopressor) 12.5 mg PO BID [facility] Last Admin: 12/30/19 09:50 Dose: 12.5 mg Documented by: Ondansetron HCl (Zofran) 4 mg IVPUSH Q4H PRN PRN Reason: Nausea and Vomiting Pantoprazole Sodium (Protonix) 40 mg PO BIDAC [facility] Last Admin: 12/30/19 06:41 Dose: 40 mg Documented by: Senna/Docusate Sodium (Senna Plus) 2 tab PO BID [facility] Last Admin: 12/30/19 09:39 Dose: 2 tab Documented by: Sucralfate (Carafate) 2 gm PO BEDTIME [facility] Last Admin: 12/29/19 20:40 Dose: 2 gm Documented by: Discontinued Medications Ferrous Sulfate (Ferrous Sulfate) 324 mg PO WITHBREAKFAST [facility] Furosemide (Lasix) 20 mg IVPUSH ONETIME ONE Stop: 12/28/19 17:13 Last Admin: 12/28/19 18:24 Dose: 20 mg Documented by: Sodium Chloride (Normal Saline) 1,000 mls @ 50 mls/hr IV ASDIRECTED [facility] Last Admin: 12/29/19 04:15 Dose: 50 mls/hr Documented by: Magnesium Sulfate 4 gm/ Premix 50 mls @ 12.5 mls/hr IV ONETIME ONE Stop: 12/30/19 12:49 Last Admin: 12/30/19 09:39 Dose: 12.5 mls/hr Documented by: Magnesium Hydroxide (Milk Of Magnesia) 30 ml PO ONETIME ONE Stop: 12/29/19 08:07 Last Admin: 12/29/19 09:20 Dose: 30 ml Documented by: Rosuvastatin Calcium (Crestor) 10 mg PO DAILY [facility] - Exam General: Alert, Oriented, Other (Pale) HEENT: Pupils Equal, Other (Mucous membranes are moist. Conjunctival pale.) Neck: Supple Lungs: Clear to Auscultation, Normal Respiratory Effort Cardiovascular: Regular Rate, Regular Rhythm Extremities: Normal Inspection, Normal Range of Motion, No Pedal Edema, Normal Capillary Refill Skin: Warm, Dry, Intact Neurological: No New Focal Deficit Psy/Mental Status: Alert, Normal Affect, Normal Mood Sepsis Event Note - Evaluation Sepsis Screening Result: No Definite Risk - Focused Exam Vital Signs: Vital Signs Temp Pulse Resp BP Pulse Ox 12/30/19 12:12 97.5 F 75 16 143/79 H 95 12/30/19 09:51 139/63 12/30/19 09:50 81 139/68 12/30/19 09:48 96.6 F L 84 18 92 L 12/30/19 03:30 98.2 F 76 14 157/57 H 93 L - Problem List Review Problem List Initiated/Reviewed/Updated: Yes - My Orders Last 24 Hours: My Active Orders 12/30/19 14:00 Sodium Phosphate 15 mmole Sodium Chloride 0.9% [Normal Saline] 250 ml IV ONETIME - Assessment Assessment:: 12/28/2019 The patient reported to ER after severe weakness and fall No fevers, no chills, no chest pain reported No nausea, vomiting, or abdominal pain The patient takes eliquis 5mg oral BID and aspirin 81mg oral daily Hgb low at 7.3, Hct 24.7, platelet count 254. Iron level low at 9, transferrin normal, TIBC elevated at 413, ferritin normal, transferrin saturation low at 2%, folic acid normal, B12 normal, reticulocyte count low A year ago, the patient had normal H&H 1 unit PRBC has been given Likely secondary to blood loss and hypovolemia. Cr 1.4, was 0.8 9 months ago UA negative for infection Sodium is 127. Patient has some third spacing Troponin 0.71 then 0.64 on repeat Answering Service Operator consulted and he recommends taking care of anemia, no catheterization Patient is without chest pain or shortness of breath EKG without ST elevation or depression Rate controlled on metoprolol tartrate 12.5mg oral BID Last dose of eliquis was yesterday morning Case was discussed with body masker as stated above. Pt on aspirin and eliquis at home. Patient does have 2+ pitting edema of LEs but appears more third spacing No increased JVP She takes lasix 20mg oral daily Patient takes atorvastatin 40mg oral daily PLAN - Check H/H now and in AM - Check stool occult - Patient needs lasix 20mg IV x1 after PRBC unit was given - Waiting on second PRBC unit - Stool occult ordered - Continuous cardiac monitoring - Will start enforced anti-acid therapy with Protonix 40 mg IVP Q12 hours and Carafate 2 gr qhs. - NS at 50ml/hr - IVF and blood product transfusion as above. - Continuous cardiac monitoring - Continue metoprolol - Continuous cardiac monitoring - Stop eliquis and hold for at least 2 weeks on discharge - Will discuss eliquis with cardiology on discharge and decide if just continuing aspirin only. - Continue metoprolol tartrate 12.5mg oral BID. - Hold amlodipine and benazepril - Continue atorvastatin 40mg oral daily - follow up appointment with body masker on discharge 12/29/2019 PT worked with patient. She is not strong enough to go home and needs 24 hour care of senior care placement Spoke to daughter who would like patient to have senior care or assisted living placement vs taking her home with her before finding place to stay. Lower extremity swelling is improved Patient less confused and feels "normal" today. 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 There is risk in transfusing patient when no obvious active bleed. 12/30/2019 Patient continues to improve. She is feeling stronger today. Plan is for discharge over the next couple of days. Hemoglobin increased to 7.8 Magnesium down to 1.6 Phosphorus low at 2.3 Sodium 129 BUN 18, creatinine 0.7 Heme positive stools On ferrous sulfate 324 twice daily with vitamin C Blood pressure stable but mildly elevated with systolics in the 140s-150s - Plan Plan:: Acute symptomatic anemia. Weakness Fall - Check CBC in AM -Stools positive for occult blood - No transfusions for now due to risk - patient's daughter agrees - Continuous cardiac monitoring -Continue anti-acid therapy with Protonix 40 mg po Q12 hours and Carafate 2 gr qhs. - Discharge possibly wednesday to jail or senior care vs home with daughter for further decision Acute renal failure - resolved - Stopping fluids. - Recheck BMP in the AM Hyponatremia.-No change Hypomagnesemia Hypophosphatemia - Recheck BMP, magnesium, phosphorus in AM -Replace mag and phosphorus Demand Ischemia -resolved - Vital signs q4h - Continuous cardiac monitoring - Daughter is finding name of body masker who worked with patient in 2018 for F/U appointment Hypertension - Continue metoprolol tartrate 12.5mg oral BID. 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 - Continue metoprolol - Continuous cardiac monitoring Systolic CHF - Lasix 20mg IV as needed for fluid overload PROPHYLAXIS GI- Pantoprazole 40mg BID DVT- Stockings, no anticoagulation as patient has low hemoglobin, probable GI bleed CODE STATUS FULL CODE SOCIAL Pt lives at home by herself. Uses walker to get around. Daughter lives in [facility] Patient is admitted on observation to the hospital for acute anemia, acute renal failure, demand ischemia. Started on fluids, GI prophylaxis. PT consulted. She is too weak for home discharge and hemoglobin remains low. Expected to stay until 12/31 in hospital.
[2019-12-30] MEDS: Sucralfate 1 GM Tab PO SCH (20:56)
[2019-12-31] MEDS: Pantoprazole 40 MG Tab.CR PO SCH ×2 (06:07→17:01)
[2019-12-31] MEDS: Ascorbic Acid 500 MG Tab PO SCH ×2 (06:07→17:01)
[2019-12-31] MEDS: Ferrous Sulfate 324 MG Tab.EC PO SCH ×2 (06:07→17:01)
[2019-12-31] MEDS: Metoprolol Tartrate 25 MG Tab PO SCH ×2 (08:27→21:34)
[2019-12-31] MEDS: amLODIPine 5 MG Tab PO SCH (08:27)
--- NOTE | 2019-12-31 12:46 | PCM.PN ---
- General Info Date of Service: 12/31/19 Admission Dx/Problem (Free Text): Admission Diagnosis/Problem Admission Diagnosis/Problem Fall at home, symptomatic anemia Subjective Update: Patient states that she feels well. She does have a decreased appetite, but had a bowel movement yesterday. Afebrile. Functional Status: Reports: Pain Controlled - Review of Systems General: Reports: No Symptoms HEENT: Reports: No Symptoms Pulmonary: Reports: No Symptoms Cardiovascular: Reports: No Symptoms Gastrointestinal: Reports: No Symptoms Musculoskeletal: Reports: No Symptoms Neurological: Reports: No Symptoms Psychiatric: Reports: No Symptoms - Patient Data Vitals - Most Recent: Last Vital Signs Temp 97.7 F 12/31/19 08:04 Pulse 74 12/31/19 08:27 Resp 22 H 12/31/19 08:04 BP 147/70 H 12/31/19 08:27 Pulse Ox 92 L 12/31/19 08:05 Orthostatic Blood Pressure [ 145/75 Sitting] Orthostatic Blood Pressure [ 133/62 Supine] Weight - Most Recent: 61.371 kg I&O - Last 24 Hours: Intake & Output 12/30/19 12/31/19 12/31/19 22:59 06:59 14:59 Intake Total 460 400 300 Output Total 750 Balance 460 -350 300 Lab Results Last 24 Hours: Laboratory Results - last 24 hr 12/31/19 12/31/19 Range/Units 09:04 09:04 WBC 7.56 (3.98-10.04) K/mm3 RBC 4.04 (3.98-5.22) M/mm3 Hgb 8.3 L (11.2-15.7) gm/dl Hct 28.0 L (34.1-44.9) % MCV 69.3 L (79.4-94.8) fl MCH 20.5 L (25.6-32.2) pg MCHC 29.6 L (32.2-35.5) g/dl RDW Std Deviation 47.2 H (36.4-46.3) fL Plt Count 336 (182-369) K/mm3 MPV 10.0 (9.4-12.3) fl Neut % (Auto) 77.9 H (34.0-71.1) % Lymph % (Auto) 10.1 L (19.3-51.7) % [place] % (Auto) 8.5 (4.7-12.5) % Eos % (Auto) 2.9 (0.7-5.8) Baso % (Auto) 0.1 (0.1-1.2) % Neut # (Auto) 5.89 (1.56-6.13) K/mm3 Lymph # (Auto) 0.76 L (1.18-3.74) K/mm3 [place] # (Auto) 0.64 H (0.24-0.36) K/mm3 Eos # (Auto) 0.22 (0.04-0.36) K/mm3 Baso # (Auto) 0.01 (0.01-0.08) K/mm3 Manual Slide Review Abnormal smear Sodium 130 L (136-145) mEq/L Potassium 3.6 (3.5-5.1) mEq/L Chloride 95 L (98-107) mEq/L Carbon Dioxide 28 (21-32) mEq/L Anion Gap 10.6 (5-15) BUN 16 (7-18) mg/dL Creatinine 0.8 (0.55-1.02) mg/dL Est Cr Clr Drug Dosing 38.94 mL/min Estimated GFR (MDRD) > 60 (>60) mL/min BUN/Creatinine Ratio 20.0 H (14-18) Glucose 193 H (83-115) mg/dL Calcium 8.5 (8.5-10.1) mg/dL Phosphorus 2.8 (2.6-4.7) mg/dL Magnesium 1.9 (1.8-2.4) mg/dl Total Bilirubin 0.8 (0.2-1.0) mg/dL AST 21 (15-37) U/L ALT 28 (14-59) U/L Alkaline Phosphatase 99 (46-116) U/L Total Protein 6.7 (6.4-8.2) g/dl Albumin 3.1 L (3.4-5.0) g/dl Globulin 3.6 gm/dL Albumin/Globulin Ratio 0.9 L (1-2) Med Orders - Current: Current Medications Acetaminophen (Tylenol) 650 mg PO Q6H PRN PRN Reason: Pain (Mild 1-3) or Fever Acetaminophen (Tylenol) 650 mg RECTAL Q6H PRN PRN Reason: Pain (Mild 1-3) or Fever Hydrocodone Bitart/Acetaminophen ([place] 325-5 Mg) 1 tab PO Q6H PRN PRN Reason: Pain (moderate 4-6) Amlodipine Besylate (Norvasc) 5 mg PO DAILY [facility] Last Admin: 12/31/19 08:27 Dose: 5 mg Documented by: Ascorbic Acid (Vitamin C) 500 mg PO BIDAC [facility] Last Admin: 12/31/19 06:07 Dose: 500 mg Documented by: Diphenhydramine HCl (Benadryl) 25 mg IVPUSH Q4H PRN PRN Reason: Restlessness or Allergies Ferrous Sulfate (Ferrous Sulfate) 324 mg PO BIDAC [facility] Last Admin: 12/31/19 06:07 Dose: 324 mg Documented by: Hydralazine HCl (Apresoline) 10 mg IVPUSH Q6H PRN PRN Reason: Hypertension Metoprolol Tartrate (Lopressor) 12.5 mg PO BID [facility] Last Admin: 12/31/19 08:27 Dose: 12.5 mg Documented by: Ondansetron HCl (Zofran) 4 mg IVPUSH Q4H PRN PRN Reason: Nausea and Vomiting Pantoprazole Sodium (Protonix) 40 mg PO BIDAC [facility] Last Admin: 12/31/19 06:07 Dose: 40 mg Documented by: Senna/Docusate Sodium (Senna Plus) 2 tab PO BID [facility] Last Admin: 12/31/19 08:27 Dose: 2 tab Documented by: Sucralfate (Carafate) 2 gm PO BEDTIME [facility] Last Admin: 12/30/19 20:56 Dose: 2 gm Documented by: Discontinued Medications Ferrous Sulfate (Ferrous Sulfate) 324 mg PO WITHBREAKFAST [facility] Furosemide (Lasix) 20 mg IVPUSH ONETIME ONE Stop: 12/28/19 17:13 Last Admin: 12/28/19 18:24 Dose: 20 mg Documented by: Sodium Chloride (Normal Saline) 1,000 mls @ 50 mls/hr IV ASDIRECTED [facility] Last Admin: 12/29/19 04:15 Dose: 50 mls/hr Documented by: Magnesium Sulfate 4 gm/ Premix 50 mls @ 12.5 mls/hr IV ONETIME ONE Stop: 12/30/19 12:49 Last Admin: 12/30/19 09:39 Dose: 12.5 mls/hr Documented by: Sodium Phosphate 15 mmole/ (Sodium Chloride) 255 mls @ 85 mls/hr IV ONETIME ONE Stop: 12/30/19 16:59 Last Admin: 12/30/19 13:18 Dose: 85 mls/hr Documented by: Ferric Sodium Gluconate Complex 250 mg/ Sodium Chloride 120 mls @ 60 mls/hr IV ONETIME ONE Stop: 12/31/19 11:14 Last Admin: 12/31/19 09:32 Dose: 60 mls/hr Documented by: Magnesium Hydroxide (Milk Of Magnesia) 30 ml PO ONETIME ONE Stop: 12/29/19 08:07 Last Admin: 12/29/19 09:20 Dose: 30 ml Documented by: Rosuvastatin Calcium (Crestor) 10 mg PO DAILY [facility] - Exam General: Alert, Oriented HEENT: Pupils Equal, Mucous Membr. Moist/[place] Neck: Supple Lungs: Clear to Auscultation, Normal Respiratory Effort Cardiovascular: Regular Rate, Regular Rhythm GI/Abdominal Exam: Normal Bowel Sounds, Soft, Non-Tender, No Organomegaly, No Distention, No Abnormal Bruit Extremities: Normal Inspection, Normal Range of Motion, Non-Tender, No Pedal Edema, Normal Capillary Refill Peripheral Pulses: 2+: Posterior Tibial (L), Posterior Tibial (R), Dorsalis Pedis (L), Dorsalis Pedis (R) Skin: Warm, Dry, Intact Neurological: No New Focal Deficit Psy/Mental Status: Alert, Normal Affect, Normal Mood Sepsis Event Note - Evaluation Sepsis Screening Result: No Definite Risk - Focused Exam Vital Signs: Vital Signs Temp Pulse Resp BP Pulse Ox 12/31/19 08:27 74 147/70 H 12/31/19 08:05 74 147/70 H 92 L 12/31/19 08:04 97.7 F 77 22 H 94 L 12/31/19 04:09 97.9 F 71 12 142/78 H 92 L - Problem List & Annotations (1) Anemia SNOMED Code(s): 200970957 Code(s): D64.9 - ANEMIA, UNSPECIFIED Status: Acute Current Visit: Yes Qualifiers: Iron deficiency anemia type: chronic blood loss (2) Hypertension SNOMED Code(s): 96592661 Code(s): I10 - ESSENTIAL (PRIMARY) HYPERTENSION Status: Acute Current Visit: Yes (3) Hyponatremia SNOMED Code(s): 90749783 Code(s): E87.1 - HYPO-OSMOLALITY AND HYPONATREMIA Status: Acute Current Visit: Yes (4) Recurrent falls SNOMED Code(s): 613890201 Code(s): R29.6 - REPEATED FALLS Status: Acute Current Visit: Yes - Problem List Review Problem List Initiated/Reviewed/Updated: Yes - My Orders Last 24 Hours: My Active Orders 12/31/19 09:00 amLODIPine [Norvasc] 5 mg PO DAILY - Assessment Assessment:: 12/28/2019 The patient reported to ER after severe weakness and fall No fevers, no chills, no chest pain reported No nausea, vomiting, or abdominal pain The patient takes eliquis 5mg oral BID and aspirin 81mg oral daily Hgb low at 7.3, Hct 24.7, platelet count 254. Iron level low at 9, transferrin normal, TIBC elevated at 413, ferritin normal, transferrin saturation low at 2%, folic acid normal, B12 normal, reticulocyte count low A year ago, the patient had normal H&H 1 unit PRBC has been given Likely secondary to blood loss and hypovolemia. Cr 1.4, was 0.8 9 months ago UA negative for infection Sodium is 127. Patient has some third spacing Troponin 0.71 then 0.64 on repeat Bag Machine Adjuster consulted and he recommends taking care of anemia, no catheterization Patient is without chest pain or shortness of breath EKG without ST elevation or depression Rate controlled on metoprolol tartrate 12.5mg oral BID Last dose of eliquis was yesterday morning Case was discussed with wallpaper printer helper as stated above. Pt on aspirin and eliquis at home. Patient does have 2+ pitting edema of LEs but appears more third spacing No increased JVP She takes lasix 20mg oral daily Patient takes atorvastatin 40mg oral daily PLAN - Check H/H now and in AM - Check stool occult - Patient needs lasix 20mg IV x1 after PRBC unit was given - Waiting on second PRBC unit - Stool occult ordered - Continuous cardiac monitoring - Will start enforced anti-acid therapy with Protonix 40 mg IVP Q12 hours and Carafate 2 gr qhs. - NS at 50ml/hr - IVF and blood product transfusion as above. - Continuous cardiac monitoring - Continue metoprolol - Continuous cardiac monitoring - Stop eliquis and hold for at least 2 weeks on discharge - Will discuss eliquis with cardiology on discharge and decide if just continuing aspirin only. - Continue metoprolol tartrate 12.5mg oral BID. - Hold amlodipine and benazepril - Continue atorvastatin 40mg oral daily - follow up appointment with wallpaper printer helper on discharge 12/29/2019 PT worked with patient. She is not strong enough to go home and needs 24 hour care of long term placement Spoke to daughter who would like patient to have long term or assisted living placement vs taking her home with her before finding place to stay. Lower extremity swelling is improved Patient less confused and feels "normal" today. 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 There is risk in transfusing patient when no obvious active bleed. 12/30/2019 Patient continues to improve. She is feeling stronger today. Plan is for discharge over the next couple of days. Hemoglobin increased to 7.8 Magnesium down to 1.6 Phosphorus low at 2.3 Sodium 129 BUN 18, creatinine 0.7 Heme positive stools On ferrous sulfate 324 twice daily with vitamin C Blood pressure stable but mildly elevated with systolics in the 140s-150s 12/30/2019 Patient is medically stable. Hemoglobin up to 8.3 Sodium stable 130likely reset osmolality Hypomagnesemia and hypophosphatemia resolved Magnesium normal at 1.9 Renal function has recovered, creatinine 0.8 Iron 9 and percent saturation 2% with total iron binding capacity of 413 Restarted amlodipine at 5 mg No significant change in blood pressure overnight - Plan Plan:: Acute symptomatic anemia. Iron deficient Weakness Fall -Give IV iron -Stools positive for occult blood - No transfusions for now due to risk - patient's daughter agrees - Continuous cardiac monitoring -Continue anti-acid therapy with Protonix 40 mg po Q12 hours and Carafate 2 gr qhs. - Discharge possibly wednesday to [facility] or long term vs home with daughter for further decision Acute renal failure - resolved Hyponatremia.-No change Demand Ischemia -resolved - Vital signs q4h - Continuous cardiac monitoring - Daughter is finding name of wallpaper printer helper who worked with patient in 2018 for F/U appointment Hypertension - Continue metoprolol tartrate 12.5mg oral BID. 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 - Continue metoprolol - Continuous cardiac monitoring Systolic CHF - Lasix 20mg IV as needed for fluid overload PROPHYLAXIS GI- Pantoprazole 40mg BID DVT- Stockings, no anticoagulation as patient has low hemoglobin, probable GI bleed CODE STATUS FULL CODE SOCIAL Pt lives at home by herself. Uses walker to get around. Daughter lives in [place] DISPOSITION Patient is admitted on observation to the hospital for acute anemia, acute renal failure, demand ischemia. Started on fluids, GI prophylaxis. PT consulted. She is too weak for home discharge and hemoglobin remains low. Expected to stay until 12/31 in hospital.
[2019-12-31] MEDS: Acetaminophen 325 MG Tab PO PRN (21:33)
[2019-12-31] MEDS: Sucralfate 1 GM Tab PO SCH (21:34)
[2020-01-01] MEDS: Pantoprazole 40 MG Tab.CR PO SCH ×2 (05:19→16:19)
[2020-01-01] MEDS: Ascorbic Acid 500 MG Tab PO SCH ×2 (05:19→16:19)
[2020-01-01] MEDS: Ferrous Sulfate 324 MG Tab.EC PO SCH ×2 (05:19→16:19)
[2020-01-01] MEDS: Metoprolol Tartrate 25 MG Tab PO SCH ×2 (08:43→20:26)
[2020-01-01] MEDS: amLODIPine 5 MG Tab PO SCH (08:44)
--- NOTE | 2020-01-01 17:13 | PCM.PN ---
- General Info Date of Service: 01/01/20 Admission Dx/Problem (Free Text): Admission Diagnosis/Problem Admission Diagnosis/Problem Fall at home, symptomatic anemia Subjective Update: Patient continues to improve. She has improving strength. Eating 100% of her meals. Continues moving her bowels normally and regularly. No black stools. Functional Status: Reports: Pain Controlled - Review of Systems General: Reports: No Symptoms HEENT: Reports: No Symptoms Pulmonary: Reports: No Symptoms Cardiovascular: Reports: No Symptoms Gastrointestinal: Reports: No Symptoms - Patient Data Vitals - Most Recent: Last Vital Signs Temp 97.9 F 01/01/20 15:17 Pulse 67 01/01/20 15:17 Resp 20 01/01/20 15:17 BP 147/41 H 01/01/20 15:17 Pulse Ox 95 01/01/20 15:17 Orthostatic Blood Pressure [ 145/75 Sitting] Orthostatic Blood Pressure [ 133/62 Supine] Weight - Most Recent: 60.464 kg I&O - Last 24 Hours: Intake & Output 01/01/20 01/01/20 01/01/20 06:59 14:59 22:59 Intake Total 300 360 410 Output Total 2200 1900 Balance -1900 360 -1490 Med Orders - Current: Current Medications Acetaminophen (Tylenol) 650 mg PO Q6H PRN PRN Reason: Pain (Mild 1-3) or Fever Last Admin: 12/31/19 21:33 Dose: 650 mg Documented by: Acetaminophen (Tylenol) 650 mg RECTAL Q6H PRN PRN Reason: Pain (Mild 1-3) or Fever Hydrocodone Bitart/Acetaminophen ([place] 325-5 Mg) 1 tab PO Q6H PRN PRN Reason: Pain (moderate 4-6) Amlodipine Besylate (Norvasc) 5 mg PO DAILY [facility] Last Admin: 01/01/20 08:44 Dose: 5 mg Documented by: Ascorbic Acid (Vitamin C) 500 mg PO BIDAC [facility] Last Admin: 01/01/20 16:19 Dose: 500 mg Documented by: Diphenhydramine HCl (Benadryl) 25 mg IVPUSH Q4H PRN PRN Reason: Restlessness or Allergies Ferrous Sulfate (Ferrous Sulfate) 324 mg PO BIDAC [facility] Last Admin: 01/01/20 16:19 Dose: 324 mg Documented by: Hydralazine HCl (Apresoline) 10 mg IVPUSH Q6H PRN PRN Reason: Hypertension Metoprolol Tartrate (Lopressor) 12.5 mg PO BID [facility] Last Admin: 01/01/20 08:43 Dose: 12.5 mg Documented by: Ondansetron HCl (Zofran) 4 mg IVPUSH Q4H PRN PRN Reason: Nausea and Vomiting Pantoprazole Sodium (Protonix) 40 mg PO BIDAC [facility] Last Admin: 01/01/20 16:19 Dose: 40 mg Documented by: Senna/Docusate Sodium (Senna Plus) 2 tab PO BID [facility] Last Admin: 01/01/20 08:45 Dose: 2 tab Documented by: Sucralfate (Carafate) 2 gm PO BEDTIME [facility] Last Admin: 12/31/19 21:34 Dose: 2 gm Documented by: Discontinued Medications Ferrous Sulfate (Ferrous Sulfate) 324 mg PO WITHBREAKFAST [facility] Furosemide (Lasix) 20 mg IVPUSH ONETIME ONE Stop: 12/28/19 17:13 Last Admin: 12/28/19 18:24 Dose: 20 mg Documented by: Sodium Chloride (Normal Saline) 1,000 mls @ 50 mls/hr IV ASDIRECTED [facility] Last Admin: 12/29/19 04:15 Dose: 50 mls/hr Documented by: Magnesium Sulfate 4 gm/ Premix 50 mls @ 12.5 mls/hr IV ONETIME ONE Stop: 12/30/19 12:49 Last Admin: 12/30/19 09:39 Dose: 12.5 mls/hr Documented by: Sodium Phosphate 15 mmole/ (Sodium Chloride) 255 mls @ 85 mls/hr IV ONETIME ONE Stop: 12/30/19 16:59 Last Admin: 12/30/19 13:18 Dose: 85 mls/hr Documented by: Ferric Sodium Gluconate Complex 250 mg/ Sodium Chloride 120 mls @ 60 mls/hr IV ONETIME ONE Stop: 12/31/19 11:14 Last Admin: 12/31/19 09:32 Dose: 60 mls/hr Documented by: Magnesium Hydroxide (Milk Of Magnesia) 30 ml PO ONETIME ONE Stop: 12/29/19 08:07 Last Admin: 12/29/19 09:20 Dose: 30 ml Documented by: Rosuvastatin Calcium (Crestor) 10 mg PO DAILY [facility] - Exam General: Alert, Oriented HEENT: Pupils Equal, Mucous Membr. Moist/[place] Neck: Supple Lungs: Clear to Auscultation, Normal Respiratory Effort Cardiovascular: Regular Rate, Regular Rhythm GI/Abdominal Exam: Normal Bowel Sounds, Soft, Non-Tender, No Distention Extremities: Normal Inspection, Non-Tender, No Pedal Edema, Normal Capillary Refill Skin: Warm, Dry, Intact Psy/Mental Status: Alert, Normal Affect, Normal Mood Sepsis Event Note - Evaluation Sepsis Screening Result: No Definite Risk - Focused Exam Vital Signs: Vital Signs Temp Pulse Resp BP Pulse Ox 01/01/20 15:17 97.9 F 67 20 147/41 H 95 01/01/20 08:44 153/60 H 01/01/20 08:43 64 153/60 H 01/01/20 07:20 97.9 F 64 20 153/60 H 95 - Problem List & Annotations (1) Anemia SNOMED Code(s): 681392149 Code(s): D64.9 - ANEMIA, UNSPECIFIED Status: Acute Current Visit: Yes Qualifiers: Iron deficiency anemia type: chronic blood loss (2) Hypertension SNOMED Code(s): 76448314 Code(s): I10 - ESSENTIAL (PRIMARY) HYPERTENSION Status: Acute Current Visit: Yes (3) Hyponatremia SNOMED Code(s): 45593883 Code(s): E87.1 - HYPO-OSMOLALITY AND HYPONATREMIA Status: Acute Current Visit: Yes (4) Recurrent falls SNOMED Code(s): 341930354 Code(s): R29.6 - REPEATED FALLS Status: Acute Current Visit: Yes - Problem List Review Problem List Initiated/Reviewed/Updated: Yes - My Orders Last 24 Hours: My Active Orders 01/01/20 09:54 Patient Status [ADT] Routine - Assessment Assessment:: 12/28/2019 The patient reported to ER after severe weakness and fall No fevers, no chills, no chest pain reported No nausea, vomiting, or abdominal pain The patient takes eliquis 5mg oral BID and aspirin 81mg oral daily Hgb low at 7.3, Hct 24.7, platelet count 254. Iron level low at 9, transferrin normal, TIBC elevated at 413, ferritin normal, transferrin saturation low at 2%, folic acid normal, B12 normal, reticulocyte count low A year ago, the patient had normal H&H 1 unit PRBC has been given Likely secondary to blood loss and hypovolemia. Cr 1.4, was 0.8 9 months ago UA negative for infection Sodium is 127. Patient has some third spacing Troponin 0.71 then 0.64 on repeat Employment Law Specialist consulted and he recommends taking care of anemia, no catheterization Patient is without chest pain or shortness of breath EKG without ST elevation or depression Rate controlled on metoprolol tartrate 12.5mg oral BID Last dose of eliquis was yesterday morning Case was discussed with marriage and family social worker as stated above. Pt on aspirin and eliquis at home. Patient does have 2+ pitting edema of LEs but appears more third spacing No increased JVP She takes lasix 20mg oral daily Patient takes atorvastatin 40mg oral daily PLAN - Check H/H now and in AM - Check stool occult - Patient needs lasix 20mg IV x1 after PRBC unit was given - Waiting on second PRBC unit - Stool occult ordered - Continuous cardiac monitoring - Will start enforced anti-acid therapy with Protonix 40 mg IVP Q12 hours and Carafate 2 gr qhs. - NS at 50ml/hr - IVF and blood product transfusion as above. - Continuous cardiac monitoring - Continue metoprolol - Continuous cardiac monitoring - Stop eliquis and hold for at least 2 weeks on discharge - Will discuss eliquis with cardiology on discharge and decide if just continuing aspirin only. - Continue metoprolol tartrate 12.5mg oral BID. - Hold amlodipine and benazepril - Continue atorvastatin 40mg oral daily - follow up appointment with marriage and family social worker on discharge 12/29/2019 PT worked with patient. She is not strong enough to go home and needs 24 hour care of residential placement Spoke to daughter who would like patient to have residential or assisted living placement vs taking her home with her before finding place to stay. Lower extremity swelling is improved Patient less confused and feels "normal" today. 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 There is risk in transfusing patient when no obvious active bleed. 12/30/2019 Patient continues to improve. She is feeling stronger today. Plan is for discharge over the next couple of days. Hemoglobin increased to 7.8 Magnesium down to 1.6 Phosphorus low at 2.3 Sodium 129 BUN 18, creatinine 0.7 Heme positive stools On ferrous sulfate 324 twice daily with vitamin C Blood pressure stable but mildly elevated with systolics in the 140s-150s 12/31/2019 Patient is medically stable. Hemoglobin up to 8.3 Sodium stable 130likely reset osmolality Hypomagnesemia and hypophosphatemia resolved Magnesium normal at 1.9 Renal function has recovered, creatinine 0.8 Iron 9 and percent saturation 2% with total iron binding capacity of 413 Restarted amlodipine at 5 mg No significant change in blood pressure overnight 01/01/2020 Patient continues to be stable No labs drawn today Awaiting placement Blood pressure in the 140s to 150s systolic On amlodipine 5 mg daily Lopressor 12.5 mg twice daily IV iron given yesterday Stools positive for occult blood Continue off Eliquis - Plan Plan:: Acute symptomatic anemia. Iron deficient Weakness Fall -Stools positive for occult blood -Continue off Eliquis - No transfusions for now due to risk - patient's daughter agrees - Continuous cardiac monitoring -Continue anti-acid therapy with Protonix 40 mg po Q12 hours and Carafate 2 gr qhs. - [facility] -Get CBC in the morning Acute renal failure - resolved Hyponatremia.-No change Demand Ischemia -resolved - Vital signs q4h - Continuous cardiac monitoring - Daughter is finding name of marriage and family social worker who worked with patient in 2018 for F/U appointment Hypertension - Continue metoprolol tartrate 12.5mg oral BID. 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 - Continue metoprolol - Continuous cardiac monitoring Systolic CHF - Lasix 20mg IV as needed for fluid overload PROPHYLAXIS GI- Pantoprazole 40mg BID DVT- Stockings, no anticoagulation as patient has low hemoglobin, probable GI bleed CODE STATUS FULL CODE SOCIAL Pt lives at home by herself. Uses walker to get around. Daughter lives in [place] DISPOSITION Patient is admitted on observation to the hospital for acute anemia, acute renal failure, demand ischemia. Started on fluids, GI prophylaxis. PT consulted. She is too weak for home discharge and hemoglobin remains low. Expected to stay until 12/31 in hospital.
[2020-01-01] MEDS: Acetaminophen 325 MG Tab PO PRN (20:25)
[2020-01-01] MEDS: Sucralfate 1 GM Tab PO SCH (20:26)
[2020-01-02] MEDS: Acetaminophen 325 MG Tab PO PRN (04:48)
[2020-01-02] MEDS: Pantoprazole 40 MG Tab.CR PO SCH ×3 (04:54→15:01)
[2020-01-02] MEDS: Ferrous Sulfate 324 MG Tab.EC PO SCH ×3 (04:55→15:01)
[2020-01-02] MEDS: Ascorbic Acid 500 MG Tab PO SCH ×3 (04:55→15:01)
--- NOTE | 2020-01-02 08:34 | PCM.PN ---
- General Info Date of Service: 01/02/20 Admission Dx/Problem (Free Text): Admission Diagnosis/Problem Admission Diagnosis/Problem Fall at home, symptomatic anemia Functional Status: Reports: Pain Controlled, Tolerating Diet, Ambulating, Urinating. Denies: New Symptoms - Review of Systems General: Reports: No Symptoms. Denies: Fever, Weakness, Fatigue, Malaise HEENT: Reports: No Symptoms. Denies: Headaches, Sore Throat Pulmonary: Reports: No Symptoms. Denies: Shortness of Breath, Pleuritic Chest Pain, Cough, Sputum, Hemoptysis, Wheezing Cardiovascular: Reports: No Symptoms. Denies: Chest Pain, Palpitations, Dyspnea on Exertion Gastrointestinal: Reports: No Symptoms. Denies: Abdominal Pain, Constipation, Diarrhea, Nausea, Vomiting Genitourinary: Reports: No Symptoms. Denies: Pain Musculoskeletal: Reports: No Symptoms Skin: Reports: No Symptoms. Denies: Cyanosis Neurological: Reports: No Symptoms. Denies: Confusion, Difficulty Walking, Gait Disturbance Psychiatric: Reports: No Symptoms - Patient Data Vitals - Most Recent: Last Vital Signs Temp 98.1 F 01/02/20 08:04 Pulse 77 01/02/20 08:04 Resp 20 01/02/20 08:04 BP 150/85 H 01/02/20 08:04 Pulse Ox 96 01/02/20 08:04 Orthostatic Blood Pressure [ 145/75 Sitting] Orthostatic Blood Pressure [ 133/62 Supine] Weight - Most Recent: 132 lb I&O - Last 24 Hours: Intake & Output 01/01/20 01/02/20 01/02/20 22:59 06:59 14:59 Intake Total 830 500 Output Total 1900 400 Balance -1070 100 Lab Results Last 24 Hours: Laboratory Results - last 24 hr 01/02/20 01/02/20 Range/Units 04:46 04:46 WBC 8.81 (3.98-10.04) K/mm3 RBC 3.70 L (3.98-5.22) M/mm3 Hgb 7.5 L (11.2-15.7) gm/dl Hct 25.7 L (34.1-44.9) % MCV 69.5 L (79.4-94.8) fl MCH 20.3 L (25.6-32.2) pg MCHC 29.2 L (32.2-35.5) g/dl RDW Std Deviation 46.8 H (36.4-46.3) fL Plt Count 308 (182-369) K/mm3 MPV 11.4 (9.4-12.3) fl Neut % (Auto) 72.3 H (34.0-71.1) % Lymph % (Auto) 10.9 L (19.3-51.7) % [place] % (Auto) 12.1 (4.7-12.5) % Eos % (Auto) 3.9 (0.7-5.8) Baso % (Auto) 0.1 (0.1-1.2) % Neut # (Auto) 6.37 H (1.56-6.13) K/mm3 Lymph # (Auto) 0.96 L (1.18-3.74) K/mm3 [place] # (Auto) 1.07 H (0.24-0.36) K/mm3 Eos # (Auto) 0.34 (0.04-0.36) K/mm3 Baso # (Auto) 0.01 (0.01-0.08) K/mm3 Manual Slide Review Abnormal smear Sodium 132 L (136-145) mEq/L Potassium 3.5 (3.5-5.1) mEq/L Chloride 98 (98-107) mEq/L Carbon Dioxide 27 (21-32) mEq/L Anion Gap 10.5 (5-15) BUN 19 H (7-18) mg/dL Creatinine 0.6 (0.55-1.02) mg/dL Est Cr Clr Drug Dosing 51.92 mL/min Estimated GFR (MDRD) > 60 (>60) mL/min BUN/Creatinine Ratio 31.7 H (14-18) Glucose 135 H (83-115) mg/dL Calcium 8.4 L (8.5-10.1) mg/dL Magnesium 1.7 L (1.8-2.4) mg/dl Med Orders - Current: Current Medications Acetaminophen (Tylenol) 650 mg PO Q6H PRN PRN Reason: Pain (Mild 1-3) or Fever Last Admin: 01/02/20 04:48 Dose: 650 mg Documented by: Acetaminophen (Tylenol) 650 mg RECTAL Q6H PRN PRN Reason: Pain (Mild 1-3) or Fever Hydrocodone Bitart/Acetaminophen (Hazel 325-5 Mg) 1 tab PO Q6H PRN PRN Reason: Pain (moderate 4-6) Amlodipine Besylate (Norvasc) 5 mg PO DAILY [facility] Last Admin: 01/01/20 08:44 Dose: 5 mg Documented by: Ascorbic Acid (Vitamin C) 500 mg PO BIDAC [facility] Last Admin: 01/02/20 05:11 Dose: Not Given Documented by: Diphenhydramine HCl (Benadryl) 25 mg IVPUSH Q4H PRN PRN Reason: Restlessness or Allergies Ferrous Sulfate (Ferrous Sulfate) 324 mg PO BIDAC [facility] Last Admin: 01/02/20 05:10 Dose: Not Given Documented by: Hydralazine HCl (Apresoline) 10 mg IVPUSH Q6H PRN PRN Reason: Hypertension Magnesium Oxide (Magnesium Oxide) 400 mg PO BID [facility] Metoprolol Tartrate (Lopressor) 12.5 mg PO BID [facility] Last Admin: 01/01/20 20:26 Dose: 12.5 mg Documented by: Ondansetron HCl (Zofran) 4 mg IVPUSH Q4H PRN PRN Reason: Nausea and Vomiting Pantoprazole Sodium (Protonix) 40 mg PO BIDAC [facility] Last Admin: 01/02/20 05:11 Dose: Not Given Documented by: Senna/Docusate Sodium (Senna Plus) 2 tab PO BID [facility] Last Admin: 01/01/20 20:26 Dose: 2 tab Documented by: Sucralfate (Carafate) 2 gm PO BEDTIME [facility] Last Admin: 01/01/20 20:26 Dose: 2 gm Documented by: Discontinued Medications Ferrous Sulfate (Ferrous Sulfate) 324 mg PO WITHBREAKFAST [facility] Furosemide (Lasix) 20 mg IVPUSH ONETIME ONE Stop: 12/28/19 17:13 Last Admin: 12/28/19 18:24 Dose: 20 mg Documented by: Sodium Chloride (Normal Saline) 1,000 mls @ 50 mls/hr IV ASDIRECTED [facility] Last Admin: 12/29/19 04:15 Dose: 50 mls/hr Documented by: Magnesium Sulfate 4 gm/ Premix 50 mls @ 12.5 mls/hr IV ONETIME ONE Stop: 12/30/19 12:49 Last Admin: 12/30/19 09:39 Dose: 12.5 mls/hr Documented by: Sodium Phosphate 15 mmole/ (Sodium Chloride) 255 mls @ 85 mls/hr IV ONETIME ONE Stop: 12/30/19 16:59 Last Admin: 12/30/19 13:18 Dose: 85 mls/hr Documented by: Ferric Sodium Gluconate Complex 250 mg/ Sodium Chloride 120 mls @ 60 mls/hr IV ONETIME ONE Stop: 12/31/19 11:14 Last Admin: 12/31/19 09:32 Dose: 60 mls/hr Documented by: Magnesium Hydroxide (Milk Of Magnesia) 30 ml PO ONETIME ONE Stop: 12/29/19 08:07 Last Admin: 12/29/19 09:20 Dose: 30 ml Documented by: Rosuvastatin Calcium (Crestor) 10 mg PO DAILY [facility] - Exam Quality Assessment: DVT Prophylaxis General: Alert, Oriented, Cooperative, No Acute Distress HEENT: Pupils Equal, Pupils Reactive, Mucous Membr. Moist/[place] Neck: Supple, Trachea Midline Lungs: Clear to Auscultation, Normal Respiratory Effort Cardiovascular: Regular Rate, Regular Rhythm GI/Abdominal Exam: Normal Bowel Sounds, Soft, Non-Tender, No Distention (Female) Exam: Deferred Back Exam: Normal Inspection, Full Range of Motion Extremities: Normal Inspection, Normal Range of Motion, Non-Tender Skin: Warm, Dry, Intact Neurological: No New Focal Deficit Psy/Mental Status: Alert, Normal Affect, Normal Mood Sepsis Event Note - Evaluation Sepsis Screening Result: No Definite Risk - Focused Exam Vital Signs: Vital Signs Temp Pulse Pulse Resp BP Pulse Ox 01/02/20 08:04 98.1 F 77 20 150/85 H 96 01/02/20 02:44 64 92 L 01/02/20 02:03 97.9 F 64 16 143/91 H - Problem List & Annotations (1) Acute kidney failure SNOMED Code(s): 32769722 Code(s): N17.9 - ACUTE KIDNEY FAILURE, UNSPECIFIED Status: Resolved Priority: High Current Visit: Yes Qualifiers: Acute renal failure type: unspecified Qualified Code(s): N17.9 - Acute kidney failure, unspecified (2) Anemia SNOMED Code(s): 167291461 Code(s): D64.9 - ANEMIA, UNSPECIFIED Status: Chronic Priority: High Current Visit: Yes Qualifiers: Anemia type: iron deficiency Iron deficiency anemia type: chronic blood loss Qualified Code(s): D50.0 - Iron deficiency anemia secondary to blood loss (chronic) (3) CAD (coronary artery disease) SNOMED Code(s): 87394207 Code(s): I25.10 - ATHSCL HEART DISEASE OF [place] CORONARY ARTERY W/O ANG PCTRS Status: Chronic Priority: Low Current Visit: No Qualifiers: Coronary Disease-Associated Artery/Lesion type: unspecified vessel or lesion type [place] vs. transplanted heart: unspecified whether tribe or transplanted heart Associated angina: angina presence unspecified Qualified Code(s): I25.10 - Atherosclerotic heart disease of tribe coronary artery without angina pectoris (4) Chronic atrial fibrillation SNOMED Code(s): 995868307 Code(s): I48.20 - CHRONIC ATRIAL FIBRILLATION, UNSPECIFIED Status: Chronic Priority: Medium Current Visit: Yes (5) Congestive heart failure SNOMED Code(s): 57192420 Code(s): I50.9 - HEART FAILURE, UNSPECIFIED Status: Chronic Priority: Medium Current Visit: No Qualifiers: Heart failure type: diastolic Heart failure chronicity: chronic Qualified Code(s): I50.32 - Chronic diastolic (congestive) heart failure (6) Generalized weakness SNOMED Code(s): 88857724 Code(s): R53.1 - WEAKNESS Status: Acute Priority: High Current Visit: Yes (7) History of CVA (cerebrovascular accident) SNOMED Code(s): 871310574 Code(s): Z86.73 - PRSNL HX OF TIA (TIA), AND CEREB INFRC W/O RESID DEFICITS Status: Chronic Priority: Low Current Visit: Yes (8) Hx of CABG SNOMED Code(s): 718688329, 650421147 Code(s): Z95.1 - PRESENCE OF AORTOCORONARY BYPASS GRAFT Status: Chronic Priority: Low Current Visit: No (9) Hypercholesterolemia SNOMED Code(s): 84264711 Code(s): E78.00 - PURE HYPERCHOLESTEROLEMIA, UNSPECIFIED Status: Chronic Priority: Low Current Visit: No (10) Hypertension SNOMED Code(s): 45793890 Code(s): I10 - ESSENTIAL (PRIMARY) HYPERTENSION Status: Chronic Priority: Medium Current Visit: No Qualifiers: Hypertension type: unspecified Qualified Code(s): I10 - Essential (primary) hypertension (11) Hyponatremia SNOMED Code(s): 41159843 Code(s): E87.1 - HYPO-OSMOLALITY AND HYPONATREMIA Status: Acute Priority: Medium Current Visit: Yes (12) Recurrent falls SNOMED Code(s): 246617721 Code(s): R29.6 - REPEATED FALLS Status: Acute Priority: High Current Visit: Yes (13) Systolic CHF SNOMED Code(s): 77741087, 190946304 Code(s): I50.20 - UNSPECIFIED SYSTOLIC (CONGESTIVE) HEART FAILURE Status: Chronic Priority: Medium Current Visit: Yes Qualifiers: Heart failure chronicity: chronic Qualified Code(s): I50.22 - Chronic systolic (congestive) heart failure (14) Demand ischemia SNOMED Code(s): 169781095, 721505644520760 Code(s): I24.8 - OTHER FORMS OF ACUTE ISCHEMIC HEART DISEASE Status: Resolved Priority: High Current Visit: Yes (15) Hypomagnesemia SNOMED Code(s): 450730505 Code(s): E83.42 - HYPOMAGNESEMIA Status: Acute Priority: High Current Visit: Yes - Problem List Review Problem List Initiated/Reviewed/Updated: Yes - My Orders Last 24 Hours: My Active Orders 01/02/20 08:34 Magnesium Sulfate/Water [Magnesium Sulfate in Water Premix] 2 gm Premix Bag 1 bag IV ONETIME - Assessment Assessment:: 12/28/2019 The patient reported to ER after severe weakness and fall No fevers, no chills, no chest pain reported No nausea, vomiting, or abdominal pain The patient takes eliquis 5mg oral BID and aspirin 81mg oral daily Hgb low at 7.3, Hct 24.7, platelet count 254. Iron level low at 9, transferrin normal, TIBC elevated at 413, ferritin normal, transferrin saturation low at 2%, folic acid normal, B12 normal, reticulocyte count low A year ago, the patient had normal H&H 1 unit PRBC has been given Likely secondary to blood loss and hypovolemia. Cr 1.4, was 0.8 9 months ago UA negative for infection Sodium is 127. Patient has some third spacing Troponin 0.71 then 0.64 on repeat Emergency Management Specialist consulted and he recommends taking care of anemia, no catheterization Patient is without chest pain or shortness of breath EKG without ST elevation or depression Rate controlled on metoprolol tartrate 12.5mg oral BID Last dose of eliquis was yesterday morning Case was discussed with electrical systems drafter as stated above. Pt on aspirin and eliquis at home. Patient does have 2+ pitting edema of LEs but appears more third spacing No increased JVP She takes lasix 20mg oral daily Patient takes atorvastatin 40mg oral daily PLAN - Check H/H now and in AM - Check stool occult - Patient needs lasix 20mg IV x1 after PRBC unit was given - Waiting on second PRBC unit - Stool occult ordered - Continuous cardiac monitoring - Will start enforced anti-acid therapy with Protonix 40 mg IVP Q12 hours and Carafate 2 gr qhs. - NS at 50ml/hr - IVF and blood product transfusion as above. - Continuous cardiac monitoring - Continue metoprolol - Continuous cardiac monitoring - Stop eliquis and hold for at least 2 weeks on discharge - Will discuss eliquis with cardiology on discharge and decide if just continuing aspirin only. - Continue metoprolol tartrate 12.5mg oral BID. - Hold amlodipine and benazepril - Continue atorvastatin 40mg oral daily - follow up appointment with electrical systems drafter on discharge 12/29/2019 PT worked with patient. She is not strong enough to go home and needs 24 hour care of halfway placement Spoke to daughter who would like patient to have halfway or assisted living placement vs taking her home with her before finding place to stay. Lower extremity swelling is improved Patient less confused and feels "normal" today. 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 There is risk in transfusing patient when no obvious active bleed. 12/30/2019 Patient continues to improve. She is feeling stronger today. Plan is for discharge over the next couple of days. Hemoglobin increased to 7.8 Magnesium down to 1.6 Phosphorus low at 2.3 Sodium 129 BUN 18, creatinine 0.7 Heme positive stools On ferrous sulfate 324 twice daily with vitamin C Blood pressure stable but mildly elevated with systolics in the 140s-150s 12/31/2019 Patient is medically stable. Hemoglobin up to 8.3 Sodium stable 130likely reset osmolality Hypomagnesemia and hypophosphatemia resolved Magnesium normal at 1.9 Renal function has recovered, creatinine 0.8 Iron 9 and percent saturation 2% with total iron binding capacity of 413 Restarted amlodipine at 5 mg No significant change in blood pressure overnight 01/01/2020 Patient continues to be stable No labs drawn today Awaiting placement Blood pressure in the 140s to 150s systolic On amlodipine 5 mg daily Lopressor 12.5 mg twice daily IV iron given yesterday Stools positive for occult blood Continue off Eliquis 01/02/2020 Continues to be grossly stable Slight Hgb drop today to 7.5 Sodium stable at 132 Awaiting placement Magnesium low at 1.7 - supplemented BP remains slightly elevated but stable Continuing to hold Eliquis Feels good and denies any weakness - Plan Plan:: Acute symptomatic anemia. Iron deficient Weakness Fall - Stools positive for occult blood - Continue to hold Eliquis - No transfusions for now due to risk - patient's daughter agrees; Significant antibodies - Continuous cardiac monitoring - Continue anti-acid therapy with Protonix 40 mg po Q12 hours and Carafate 2 gr qhs. - Discharge to [facility] when available - Repeat CBC in the morning - Repeat IV iron infusion today Acute renal failure - resolved Hyponatremia - stable Demand Ischemia -resolved Hypertension - stable - Continue metoprolol tartrate 12.5mg oral BID. 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 - Continue metoprolol - Continuous cardiac monitoring Systolic CHF - Lasix 20mg IV as needed for fluid overload Hypomagnesemia - Supplement PROPHYLAXIS GI- Pantoprazole 40mg BID DVT- Stockings, no anticoagulation as patient has low hemoglobin, probable GI bleed CODE STATUS FULL CODE SOCIAL Pt lives at home by herself. Uses walker to get around. Daughter lives in [place] DISPOSITION Patient is admitted on observation to the hospital for acute anemia, acute renal failure, demand ischemia. Started on fluids, GI prophylaxis. PT consulted. She is too weak for home discharge and hemoglobin remains low. Expected to stay until 12/31 in hospital.
[2020-01-02] MEDS ORDERED: Magnesium Sulfate/Water 2 GM in Premix Bag 1 BAG IV ONE (09:00)
[2020-01-02] MEDS: Magnesium Oxide 400 MG Tab PO SCH ×2 (09:09→21:03)
[2020-01-02] MEDS: Metoprolol Tartrate 25 MG Tab PO SCH ×2 (09:11→21:05)
[2020-01-02] MEDS: amLODIPine 5 MG Tab PO SCH (09:12)
[2020-01-02] MEDS: Sucralfate 1 GM Tab PO SCH (21:03)
[2020-01-03] MEDS: Acetaminophen 325 MG Tab PO PRN ×2 (00:49→19:25)
[2020-01-03] MEDS: Ferrous Sulfate 324 MG Tab.EC PO SCH ×2 (05:53→16:36)
[2020-01-03] MEDS: Ascorbic Acid 500 MG Tab PO SCH ×2 (05:53→16:36)
[2020-01-03] MEDS: Pantoprazole 40 MG Tab.CR PO SCH ×2 (05:53→16:35)
[2020-01-03] MEDS: Magnesium Oxide 400 MG Tab PO SCH ×2 (09:00→20:50)
[2020-01-03] MEDS: Metoprolol Tartrate 25 MG Tab PO SCH ×2 (10:46→20:50)
[2020-01-03] MEDS: amLODIPine 5 MG Tab PO SCH (10:47)
--- NOTE | 2020-01-03 11:03 | PCM.PN ---
- General Info Date of Service: 01/03/20 Admission Dx/Problem (Free Text): Admission Diagnosis/Problem Admission Diagnosis/Problem Fall at home, symptomatic anemia Functional Status: Reports: Pain Controlled, Tolerating Diet, Ambulating, Urinating. Denies: New Symptoms - Review of Systems General: Reports: Weakness (improved ). Denies: Fever, Fatigue, Malaise, Chills HEENT: Reports: No Symptoms. Denies: Eye Pain, Headaches Pulmonary: Reports: No Symptoms. Denies: Shortness of Breath, Pleuritic Chest Pain, Cough, Sputum, Wheezing Cardiovascular: Reports: No Symptoms. Denies: Chest Pain, Palpitations, Dyspnea on Exertion Gastrointestinal: Reports: No Symptoms. Denies: Abdominal Pain, Constipation, Diarrhea, Nausea, Vomiting Genitourinary: Reports: No Symptoms. Denies: Pain Musculoskeletal: Reports: No Symptoms Skin: Reports: No Symptoms. Denies: Cyanosis Neurological: Reports: No Symptoms. Denies: Confusion Psychiatric: Reports: No Symptoms - Patient Data Vitals - Most Recent: Last Vital Signs Temp 98.1 F 01/03/20 07:27 Pulse 63 01/03/20 10:46 Resp 20 01/03/20 07:27 BP 130/43 L 01/03/20 10:47 Pulse Ox 96 01/03/20 08:59 Orthostatic Blood Pressure [ 145/75 Sitting] Orthostatic Blood Pressure [ 133/62 Supine] Weight - Most Recent: 129 lb 14.4 oz I&O - Last 24 Hours: Intake & Output 01/02/20 01/03/20 01/03/20 22:59 06:59 14:59 Intake Total 520 600 120 Output Total 1550 550 Balance -1030 50 120 Lab Results Last 24 Hours: Laboratory Results - last 24 hr 01/03/20 01/03/20 Range/Units 05:56 05:56 WBC 10.06 H (3.98-10.04) K/mm3 RBC 3.97 L (3.98-5.22) M/mm3 Hgb 8.2 L (11.2-15.7) gm/dl Hct 27.7 L (34.1-44.9) % MCV 69.8 L (79.4-94.8) fl MCH 20.7 L (25.6-32.2) pg MCHC 29.6 L (32.2-35.5) g/dl RDW Std Deviation 46.1 (36.4-46.3) fL Plt Count 346 (182-369) K/mm3 MPV 10.7 (9.4-12.3) fl Neut % (Auto) 73.6 H (34.0-71.1) % Lymph % (Auto) 10.2 L (19.3-51.7) % [place] % (Auto) 10.6 (4.7-12.5) % Eos % (Auto) 4.4 (0.7-5.8) Baso % (Auto) 0.2 (0.1-1.2) % Neut # (Auto) 7.40 H (1.56-6.13) K/mm3 Lymph # (Auto) 1.03 L (1.18-3.74) K/mm3 [place] # (Auto) 1.07 H (0.24-0.36) K/mm3 Eos # (Auto) 0.44 H (0.04-0.36) K/mm3 Baso # (Auto) 0.02 (0.01-0.08) K/mm3 Manual Slide Review Abnormal smear Sodium 131 L (136-145) mEq/L Potassium 3.8 (3.5-5.1) mEq/L Chloride 97 L (98-107) mEq/L Carbon Dioxide 26 (21-32) mEq/L Anion Gap 11.8 (5-15) BUN 17 (7-18) mg/dL Creatinine 0.6 (0.55-1.02) mg/dL Est Cr Clr Drug Dosing 51.92 mL/min Estimated GFR (MDRD) > 60 (>60) mL/min BUN/Creatinine Ratio 28.3 H (14-18) Glucose 119 H (83-115) mg/dL Calcium 8.6 (8.5-10.1) mg/dL Magnesium 2.0 (1.8-2.4) mg/dl Med Orders - Current: Current Medications Acetaminophen (Tylenol) 650 mg PO Q6H PRN PRN Reason: Pain (Mild 1-3) or Fever Last Admin: 01/03/20 00:49 Dose: 650 mg Documented by: Acetaminophen (Tylenol) 650 mg RECTAL Q6H PRN PRN Reason: Pain (Mild 1-3) or Fever Hydrocodone Bitart/Acetaminophen ([place] 325-5 Mg) 1 tab PO Q6H PRN PRN Reason: Pain (moderate 4-6) Amlodipine Besylate (Norvasc) 5 mg PO DAILY [facility] Last Admin: 01/03/20 10:47 Dose: 5 mg Documented by: Ascorbic Acid (Vitamin C) 500 mg PO BIDAC [facility] Last Admin: 01/03/20 05:53 Dose: 500 mg Documented by: Diphenhydramine HCl (Benadryl) 25 mg IVPUSH Q4H PRN PRN Reason: Restlessness or Allergies Ferrous Sulfate (Ferrous Sulfate) 324 mg PO BIDAC [facility] Last Admin: 01/03/20 05:53 Dose: 324 mg Documented by: Hydralazine HCl (Apresoline) 10 mg IVPUSH Q6H PRN PRN Reason: Hypertension Magnesium Oxide (Magnesium Oxide) 400 mg PO BID [facility] Last Admin: 01/03/20 09:00 Dose: 400 mg Documented by: Metoprolol Tartrate (Lopressor) 12.5 mg PO BID [facility] Last Admin: 01/03/20 10:46 Dose: 12.5 mg Documented by: Ondansetron HCl (Zofran) 4 mg IVPUSH Q4H PRN PRN Reason: Nausea and Vomiting Pantoprazole Sodium (Protonix) 40 mg PO BIDAC [facility] Last Admin: 01/03/20 05:53 Dose: 40 mg Documented by: Senna/Docusate Sodium (Senna Plus) 2 tab PO BID [facility] Last Admin: 01/03/20 09:01 Dose: 2 tab Documented by: Sucralfate (Carafate) 2 gm PO BEDTIME [facility] Last Admin: 01/02/20 21:03 Dose: 2 gm Documented by: Discontinued Medications Ferrous Sulfate (Ferrous Sulfate) 324 mg PO WITHBREAKFAST [facility] Furosemide (Lasix) 20 mg IVPUSH ONETIME ONE Stop: 12/28/19 17:13 Last Admin: 12/28/19 18:24 Dose: 20 mg Documented by: Sodium Chloride (Normal Saline) 1,000 mls @ 50 mls/hr IV ASDIRECTED [facility] Last Admin: 12/29/19 04:15 Dose: 50 mls/hr Documented by: Magnesium Sulfate 4 gm/ Premix 50 mls @ 12.5 mls/hr IV ONETIME ONE Stop: 12/30/19 12:49 Last Admin: 12/30/19 09:39 Dose: 12.5 mls/hr Documented by: Sodium Phosphate 15 mmole/ (Sodium Chloride) 255 mls @ 85 mls/hr IV ONETIME ONE Stop: 12/30/19 16:59 Last Admin: 12/30/19 13:18 Dose: 85 mls/hr Documented by: Ferric Sodium Gluconate Complex 250 mg/ Sodium Chloride 120 mls @ 60 mls/hr IV ONETIME ONE Stop: 12/31/19 11:14 Last Admin: 12/31/19 09:32 Dose: 60 mls/hr Documented by: Magnesium Sulfate 2 gm/ Premix 50 mls @ 25 mls/hr IV ONETIME ONE Stop: 01/02/20 10:59 Last Admin: 01/02/20 09:12 Dose: 25 mls/hr Documented by: Ferric Sodium Gluconate Complex 250 mg/ Sodium Chloride 120 mls @ 60 mls/hr IV ONETIME ONE Stop: 01/02/20 12:27 Last Admin: 01/02/20 11:17 Dose: 60 mls/hr Documented by: Magnesium Hydroxide (Milk Of Magnesia) 30 ml PO ONETIME ONE Stop: 12/29/19 08:07 Last Admin: 12/29/19 09:20 Dose: 30 ml Documented by: Rosuvastatin Calcium (Crestor) 10 mg PO DAILY [facility] - Exam Quality Assessment: DVT Prophylaxis. No: Supplemental Oxygen General: Alert, Oriented, Cooperative, No Acute Distress HEENT: Pupils Equal, Pupils Reactive, Mucous Membr. Moist/[place] Neck: Supple, Trachea Midline Lungs: Clear to Auscultation, Normal Respiratory Effort Cardiovascular: Regular Rate, Regular Rhythm GI/Abdominal Exam: Normal Bowel Sounds, Soft, Non-Tender, No Distention (Female) Exam: Deferred Extremities: Normal Inspection, Normal Range of Motion, No Pedal Edema Skin: Warm, Dry, Intact Neurological: No New Focal Deficit Psy/Mental Status: Alert Sepsis Event Note - Evaluation Sepsis Screening Result: No Definite Risk - Focused Exam Vital Signs: Vital Signs Temp Pulse Resp BP Pulse Ox 01/03/20 10:47 130/43 L 01/03/20 10:46 63 130/43 L 01/03/20 08:59 72 128/47 L 96 01/03/20 07:27 98.1 F 75 20 147/65 H 94 L 01/03/20 04:04 97.9 F 66 18 153/53 H 96 - Problem List & Annotations (1) Acute kidney failure SNOMED Code(s): 86749949 Code(s): N17.9 - ACUTE KIDNEY FAILURE, UNSPECIFIED Status: Resolved Priority: High Current Visit: Yes Qualifiers: Acute renal failure type: unspecified Qualified Code(s): N17.9 - Acute kidney failure, unspecified (2) Anemia SNOMED Code(s): 491243047 Code(s): D64.9 - ANEMIA, UNSPECIFIED Status: Chronic Priority: High Current Visit: Yes Qualifiers: Anemia type: iron deficiency Iron deficiency anemia type: chronic blood loss Qualified Code(s): D50.0 - Iron deficiency anemia secondary to blood loss (chronic) (3) CAD (coronary artery disease) SNOMED Code(s): 86390539 Code(s): I25.10 - ATHSCL HEART DISEASE OF [place] CORONARY ARTERY W/O ANG PCTRS Status: Chronic Priority: Low Current Visit: No Qualifiers: Coronary Disease-Associated Artery/Lesion type: unspecified vessel or lesion type [place] vs. transplanted heart: unspecified whether [place] or transplanted heart Associated angina: angina presence unspecified Qualified Code(s): I25.10 - Atherosclerotic heart disease of [place] coronary artery without angina pectoris (4) Chronic atrial fibrillation SNOMED Code(s): 945668828 Code(s): I48.20 - CHRONIC ATRIAL FIBRILLATION, UNSPECIFIED Status: Chronic Priority: Medium Current Visit: Yes (5) Congestive heart failure SNOMED Code(s): 60962754 Code(s): I50.9 - HEART FAILURE, UNSPECIFIED Status: Chronic Priority: Medium Current Visit: No Qualifiers: Heart failure type: diastolic Heart failure chronicity: chronic Qualified Code(s): I50.32 - Chronic diastolic (congestive) heart failure (6) Generalized weakness SNOMED Code(s): 32964621 Code(s): R53.1 - WEAKNESS Status: Acute Priority: High Current Visit: Yes (7) History of CVA (cerebrovascular accident) SNOMED Code(s): 771636556 Code(s): Z86.73 - PRSNL HX OF TIA (TIA), AND CEREB INFRC W/O RESID DEFICITS Status: Chronic Priority: Low Current Visit: Yes (8) Hx of CABG SNOMED Code(s): 090970540, 042950289 Code(s): Z95.1 - PRESENCE OF AORTOCORONARY BYPASS GRAFT Status: Chronic Priority: Low Current Visit: No (9) Hypercholesterolemia SNOMED Code(s): 31275101 Code(s): E78.00 - PURE HYPERCHOLESTEROLEMIA, UNSPECIFIED Status: Chronic Priority: Low Current Visit: No (10) Hypertension SNOMED Code(s): 79786814 Code(s): I10 - ESSENTIAL (PRIMARY) HYPERTENSION Status: Chronic Priority: Medium Current Visit: No Qualifiers: Hypertension type: unspecified Qualified Code(s): I10 - Essential (primary) hypertension (11) Hyponatremia SNOMED Code(s): 66031291 Code(s): E87.1 - HYPO-OSMOLALITY AND HYPONATREMIA Status: Acute Priority: Medium Current Visit: Yes (12) Recurrent falls SNOMED Code(s): 180939542 Code(s): R29.6 - REPEATED FALLS Status: Acute Priority: High Current Visit: Yes (13) Systolic CHF SNOMED Code(s): 58391119, 071329773 Code(s): I50.20 - UNSPECIFIED SYSTOLIC (CONGESTIVE) HEART FAILURE Status: Chronic Priority: Medium Current Visit: Yes Qualifiers: Heart failure chronicity: chronic Qualified Code(s): I50.22 - Chronic systolic (congestive) heart failure (14) Demand ischemia SNOMED Code(s): 749895784, 115724250589368 Code(s): I24.8 - OTHER FORMS OF ACUTE ISCHEMIC HEART DISEASE Status: Resolved Priority: High Current Visit: Yes (15) Hypomagnesemia SNOMED Code(s): 986687979 Code(s): E83.42 - HYPOMAGNESEMIA Status: Acute Priority: High Current Visit: Yes - Problem List Review Problem List Initiated/Reviewed/Updated: Yes - Assessment Assessment:: 12/28/2019 The patient reported to ER after severe weakness and fall No fevers, no chills, no chest pain reported No nausea, vomiting, or abdominal pain The patient takes eliquis 5mg oral BID and aspirin 81mg oral daily Hgb low at 7.3, Hct 24.7, platelet count 254. Iron level low at 9, transferrin normal, TIBC elevated at 413, ferritin normal, transferrin saturation low at 2%, folic acid normal, B12 normal, reticulocyte count low A year ago, the patient had normal H&H 1 unit PRBC has been given Likely secondary to blood loss and hypovolemia. Cr 1.4, was 0.8 9 months ago UA negative for infection Sodium is 127. Patient has some third spacing Troponin 0.71 then 0.64 on repeat Supply Clerk consulted and he recommends taking care of anemia, no catheterization Patient is without chest pain or shortness of breath EKG without ST elevation or depression Rate controlled on metoprolol tartrate 12.5mg oral BID Last dose of eliquis was yesterday morning Case was discussed with sand buffer as stated above. Pt on aspirin and eliquis at home. Patient does have 2+ pitting edema of LEs but appears more third spacing No increased JVP She takes lasix 20mg oral daily Patient takes atorvastatin 40mg oral daily PLAN - Check H/H now and in AM - Check stool occult - Patient needs lasix 20mg IV x1 after PRBC unit was given - Waiting on second PRBC unit - Stool occult ordered - Continuous cardiac monitoring - Will start enforced anti-acid therapy with Protonix 40 mg IVP Q12 hours and Carafate 2 gr qhs. - NS at 50ml/hr - IVF and blood product transfusion as above. - Continuous cardiac monitoring - Continue metoprolol - Continuous cardiac monitoring - Stop eliquis and hold for at least 2 weeks on discharge - Will discuss eliquis with cardiology on discharge and decide if just co ntinuing aspirin only. - Continue metoprolol tartrate 12.5mg oral BID. - Hold amlodipine and benazepril - Continue atorvastatin 40mg oral daily - follow up appointment with sand buffer on discharge 12/29/2019 PT worked with patient. She is not strong enough to go home and needs 24 hour care [facility] [place] [facility] Spoke to daughter who would like patient to have [place] [facility] or assisted living placement vs taking her home with her before finding place to stay. Lower extremity swelling is improved Patient less confused and feels "normal" today. 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 There is risk in transfusing patient when no obvious active bleed. 12/30/2019 Patient continues to improve. She is feeling stronger today. Plan is for discharge over the next couple of days. Hemoglobin increased to 7.8 Magnesium down to 1.6 Phosphorus low at 2.3 Sodium 129 BUN 18, creatinine 0.7 Heme positive stools On ferrous sulfate 324 twice daily with vitamin C Blood pressure stable but mildly elevated with systolics in the 140s-150s 12/31/2019 Patient is medically stable. Hemoglobin up to 8.3 Sodium stable 130likely reset osmolality Hypomagnesemia and hypophosphatemia resolved Magnesium normal at 1.9 Renal function has recovered, creatinine 0.8 Iron 9 and percent saturation 2% with total iron binding capacity of 413 Restarted amlodipine at 5 mg No significant change in blood pressure overnight 01/01/2020 Patient continues to be stable No labs drawn today Awaiting placement Blood pressure in the 140s to 150s systolic On amlodipine 5 mg daily Lopressor 12.5 mg twice daily IV iron given yesterday Stools positive for occult blood Continue off Eliquis 01/02/2020 Continues to be grossly stable Slight Hgb drop today to 7.5 Sodium stable at 132 Awaiting placement Magnesium low at 1.7 - supplemented BP remains slightly elevated but stable Continuing to hold Eliquis Feels good and denies any weakness 01/03/2020 Continues to be clinically stable and reports she feels good Hgb up to 8.2 today Sodium stable at 131 Awaiting placement - possible acceptance tomorrow Continue to hold Eliquis due to recent bleed. Magnesium 2.0 Will be cleared for discharge once accepted at [facility] - Plan Plan:: Acute symptomatic anemia. Iron deficient Weakness Fall - Stools positive for occult blood - Continue to hold Eliquis - No transfusions for now due to risk - patient's daughter agrees; Significant antibodies - Continuous cardiac monitoring - Continue anti-acid therapy with Protonix 40 mg po Q12 hours and Carafate 2 gr qhs. - Discharge to halfway when available Acute renal failure - resolved Hyponatremia - stable Demand Ischemia -resolved Hypertension - stable - Continue metoprolol tartrate 12.5mg oral BID. 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 - Continue metoprolol - Continuous cardiac monitoring Systolic CHF - Lasix 20mg IV as needed for fluid overload Hypomagnesemia - resolved PROPHYLAXIS GI- Pantoprazole 40mg BID DVT- Stockings, no anticoagulation as patient has low hemoglobin, probable GI bleed CODE STATUS FULL CODE SOCIAL Pt lives at home by herself. Uses walker to get around. Daughter lives in [place] DISPOSITION Patient is admitted on observation to the hospital for acute anemia, acute renal failure, demand ischemia. Started on fluids, GI prophylaxis. PT consulted. She is too weak for home discharge and hemoglobin remains low, but improved. Will be cleared for discharge pending placement.
[2020-01-03] MEDS: Sucralfate 1 GM Tab PO SCH (20:50)
[2020-01-04] MEDS: Acetaminophen 325 MG Tab PO PRN (02:36)
[2020-01-04] MEDS: Ascorbic Acid 500 MG Tab PO SCH (05:33)
[2020-01-04] MEDS: Ferrous Sulfate 324 MG Tab.EC PO SCH (05:33)
[2020-01-04] MEDS: Pantoprazole 40 MG Tab.CR PO SCH (05:33)
[2020-01-04] MEDS: Metoprolol Tartrate 25 MG Tab PO SCH (08:06)
[2020-01-04] MEDS: amLODIPine 5 MG Tab PO SCH (08:06)
[2020-01-04] MEDS: Magnesium Oxide 400 MG Tab PO SCH (08:07)
--- NOTE | 2020-01-04 10:53 | PCM.DCSUM1 ---
Discharge Summary - Hospital Course HPI Initial Comments: The patient is an 84 yo female, PCP Dr. Rosales, with a past medical history of atrial fibrillation anticoagulated on eliquis, CAT s/p OK and CABG x3 in Mar 2019, systolic CHF, and colon polyposis. The patient was brought to the ER yesterday evening by her sister after experiencing a fall at home. At about 5AM on 12/26, the patient was up and walking and feeling fine but by 6pm, the patient started feeling so weak she got up to go to the bathroom and collapsed down to the ground. She does not feel like she lost consciousness but she cant remember exactly what happened when she collapsed. She did urinate and defecate on self. States she had to go so bad but was too weak to get up after collapsing. She denies chest pain, shortness of breath, palpitations. She has had increased swelling in legs over past couple of days. She denies noticing blo od in stool or urine. She has not been vomiting. No fevers, chills, or cough. No recent weight gain or loss. She went to her PCP in the AM who ordered CBC, found Hgb 7.5 and sent patient to ED for PRBC transfusion. In the ED, vital signs were good with BP 148/94. EKG showed rate controlled atrial fibrillation, HR 77. Orthostatic vitals were done and were negative for orthostasis. WBC was 9.37, Hgb low at 7.3, Hct 24.7, platelet count 254. Iron level low at 9, transferrin normal, TIBC elevated at 413, ferritin normal, transferrin saturation low at 2%, folic acid normal, B12 normal, reticulocyte count low. Troponin was found elevated at 0.71. The case was discussed between Dr. Arnold, ER doctor, and Dr. Anderson, mineral ore processing labourer evaluation engineer at [facility] who stated since patient is anemic and has no anginal symptoms, he would be reluctant to place stent and recommended treating anemia and if symptoms persist, refer to PCP. Second troponin was decreased at 0.64. 1 unit of PRBCs was given but unfortunately, patient has antibodies and another blood transfusion will not get here until tomorrow. The patient continues to deny shortness of breath, dizziness, lightheadedness, chest pain, or palpitations. She has not noticed blood or dark in stools. Last time she took eliquis and aspirin was Yesterday AM. Diagnosis: Stroke: No - Discharge Data Discharge Date: 01/04/20 (Admit date: 12/28/19) Discharge Disposition: DC/Tfer to SNF 03 Condition: Good - Referral to Home Health Primary Care Physician: Vivek Rosales MD - Discharge Diagnosis/Problem(s) (1) Acute kidney failure SNOMED Code(s): 71952011 ICD Code: N17.9 - ACUTE KIDNEY FAILURE, UNSPECIFIED Status: Resolved Priority: High Current Visit: Yes Qualifiers: Acute renal failure type: unspecified Qualified Code(s): N17.9 - Acute kidney failure, unspecified (2) Anemia SNOMED Code(s): 245810292 ICD Code: D64.9 - ANEMIA, UNSPECIFIED Status: Chronic Priority: High Current Visit: Yes Qualifiers: Anemia type: iron deficiency Iron deficiency anemia type: chronic blood loss Qualified Code(s): D50.0 - Iron deficiency anemia secondary to blood loss (chronic) (3) CAD (coronary artery disease) SNOMED Code(s): 05617555 ICD Code: I25.10 - ATHSCL HEART DISEASE OF [place]' CORONARY ARTERY W/O ANG PCTRS Status: Chronic Priority: Low Current Visit: No Qualifiers: Coronary Disease-Associated Artery/Lesion type: unspecified vessel or lesion type [place] vs. transplanted heart: unspecified whether resighini or transplanted heart Associated angina: angina presence unspecified Qualified Code(s): I25.10 - Atherosclerotic heart disease of [place] coronary artery without angina pectoris (4) Chronic atrial fibrillation SNOMED Code(s): 562863066 ICD Code: I48.20 - CHRONIC ATRIAL FIBRILLATION, UNSPECIFIED Status: Chronic Priority: Medium Current Visit: Yes (5) Congestive heart failure SNOMED Code(s): 23335351 ICD Code: I50.9 - HEART FAILURE, UNSPECIFIED Status: Chronic Priority: Medium Current Visit: No Qualifiers: Heart failure type: diastolic Heart failure chronicity: chronic Qualified Code(s): I50.32 - Chronic diastolic (congestive) heart failure (6) Generalized weakness SNOMED Code(s): 19229280 ICD Code: R53.1 - WEAKNESS Status: Acute Priority: High Current Visit: Yes (7) History of CVA (cerebrovascular accident) SNOMED Code(s): 244691901 ICD Code: Z86.73 - PRSNL HX OF TIA (TIA), AND CEREB INFRC W/O RESID DEFICITS Status: Chronic Priority: Low Current Visit: Yes (8) Hx of CABG SNOMED Code(s): 838439833, 224934341 ICD Code: Z95.1 - PRESENCE OF AORTOCORONARY BYPASS GRAFT Status: Chronic Priority: Low Current Visit: No (9) Hypercholesterolemia SNOMED Code(s): 70184437 ICD Code: E78.00 - PURE HYPERCHOLESTEROLEMIA, UNSPECIFIED Status: Chronic Priority: Low Current Visit: No (10) Hypertension SNOMED Code(s): 18034417 ICD Code: I10 - ESSENTIAL (PRIMARY) HYPERTENSION Status: Chronic Priority: Medium Current Visit: No Qualifiers: Hypertension type: unspecified Qualified Code(s): I10 - Essential (primary) hypertension (11) Hyponatremia SNOMED Code(s): 17639325 ICD Code: E87.1 - HYPO-OSMOLALITY AND HYPONATREMIA Status: Acute Priority: Medium Current Visit: Yes (12) Recurrent falls SNOMED Code(s): 997420734 ICD Code: R29.6 - REPEATED FALLS Status: Acute Priority: High Current Visit: Yes (13) Systolic CHF SNOMED Code(s): 34300785, 322086796 ICD Code: I50.20 - UNSPECIFIED SYSTOLIC (CONGESTIVE) HEART FAILURE Status: Chronic Priority: Medium Current Visit: Yes Qualifiers: Heart failure chronicity: chronic Qualified Code(s): I50.22 - Chronic systolic (congestive) heart failure (14) Demand ischemia SNOMED Code(s): 370306885, 589752033661788 ICD Code: I24.8 - OTHER FORMS OF ACUTE ISCHEMIC HEART DISEASE Status: Resolved Priority: High Current Visit: Yes (15) Hypomagnesemia SNOMED Code(s): 120488502 ICD Code: E83.42 - HYPOMAGNESEMIA Status: Acute Priority: High Current Visit: Yes - Patient Summary/Data Consults: Consultations 12/28/19 17:26 PT Evaluation and Treatment [CONS] Routine 12/28/19 17:39 Consult to Case Management/Fish Hatchery Manager [CONS] Routine 12/29/19 09:56 OT Evaluation and Treatment [CONS] Routine Labs Pending at D/C: None Recommended Follow-up Testing/Procedures: Follow-up with primary care provider within 7-10 days of discharge, sooner if needed. Hospital Course: Assessment:: 12/28/2019 The patient reported to ER after severe weakness and fall No fevers, no chills, no chest pain reported No nausea, vomiting, or abdominal pain The patient takes eliquis 5mg oral BID and aspirin 81mg oral daily Hgb low at 7.3, Hct 24.7, platelet count 254. Iron level low at 9, transferrin normal, TIBC elevated at 413, ferritin normal, transferrin saturation low at 2%, folic acid normal, B12 normal, reticulocyte count low A year ago, the patient had normal H&H 1 unit PRBC has been given Likely secondary to blood loss and hypovolemia. Cr 1.4, was 0.8 9 months ago UA negative for infection Sodium is 127. Patient has some third spacing Troponin 0.71 then 0.64 on repeat Delivery Rn consulted and he recommends taking care of anemia, no catheterization Patient is without chest pain or shortness of breath EKG without ST elevation or depression Rate controlled on metoprolol tartrate 12.5mg oral BID Last dose of eliquis was yesterday morning Case was discussed with mineral ore processing labourer as stated above. Pt on aspirin and eliquis at home. Patient does have 2+ pitting edema of LEs but appears more third spacing No increased JVP She takes lasix 20mg oral daily Patient takes atorvastatin 40mg oral daily PLAN - Check H/H now and in AM - Check stool occult - Patient needs lasix 20mg IV x1 after PRBC unit was given - Waiting on second PRBC unit - Stool occult ordered - Continuous cardiac monitoring - Will start enforced anti-acid therapy with Protonix 40 mg IVP Q12 hours and Carafate 2 gr qhs. - NS at 50ml/hr - IVF and blood product transfusion as above. - Continuous cardiac monitoring - Continue metoprolol - Continuous cardiac monitoring - Stop eliquis and hold for at least 2 weeks on discharge - Will discuss eliquis with cardiology on discharge and decide if just continuing aspirin only. - Continue metoprolol tartrate 12.5mg oral BID. - Hold amlodipine and benazepril - Continue atorvastatin 40mg oral daily - follow up appointment with mineral ore processing labourer on discharge 12/29/2019 PT worked with patient. She is not strong enough to go home and needs 24 hour care of [facility] placement Spoke to daughter who would like patient to have [facility] or assisted living placement vs taking her home with her before finding place to stay. Lower extremity swelling is improved Patient less confused and feels "normal" today. 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 There is risk in transfusing patient when no obvious active bleed. 12/30/2019 Patient continues to improve. She is feeling stronger today. Plan is for discharge over the next couple of days. Hemoglobin increased to 7.8 Magnesium down to 1.6 Phosphorus low at 2.3 Sodium 129 BUN 18, creatinine 0.7 Heme positive stools On ferrous sulfate 324 twice daily with vitamin C Blood pressure stable but mildly elevated with systolics in the 140s-150s 12/31/2019 Patient is medically stable. Hemoglobin up to 8.3 Sodium stable 130likely reset osmolality Hypomagnesemia and hypophosphatemia resolved Magnesium normal at 1.9 Renal function has recovered, creatinine 0.8 Iron 9 and percent saturation 2% with total iron binding capacity of 413 Restarted amlodipine at 5 mg No significant change in blood pressure overnight 01/01/2020 Patient continues to be stable No labs drawn today Awaiting placement Blood pressure in the 140s to 150s systolic On amlodipine 5 mg daily Lopressor 12.5 mg twice daily IV iron given yesterday Stools positive for occult blood Continue off Eliquis 01/02/2020 Continues to be grossly stable Slight Hgb drop today to 7.5 Sodium stable at 132 Awaiting placement Magnesium low at 1.7 - supplemented BP remains slightly elevated but stable Continuing to hold Eliquis Feels good and denies any weakness 01/03/2020 Continues to be clinically stable and reports she feels good Hgb up to 8.2 today Sodium stable at 131 Awaiting placement - possible acceptance tomorrow Continue to hold Eliquis due to recent bleed. Magnesium 2.0 Will be cleared for discharge once accepted at 01/04/2020 Discharged to [facility] today Eliquis and ASA discontinued on discharge due to stable rectal bleed PCP/Cardiology to determine when to restart ASA and/or Eliquis Discharge medications discussed with Dr. Diaz: Discontinue lasix and Lotensin, Will discharge on 5mg Norvasc and not 10mg Continue BID Iron supplementation and Vitamin C on discharge Follow-up with PCP within 7-10 days of discharge No complaints on discharge, clinically looks well. - Plan Plan:: Acute symptomatic anemia. Iron deficient Weakness Fall - Stools positive for occult blood - Continue to hold Eliquis - No transfusions for now due to risk - patient's daughter agrees; Significant antibodies - Continuous cardiac monitoring - Continue anti-acid therapy with Protonix 40 mg po Q12 hours and Carafate 2 gr qhs. - Discharge to intermediate when available Acute renal failure - resolved Hyponatremia - stable Demand Ischemia -resolved Hypertension - stable - Continue metoprolol tartrate 12.5mg oral BID. - Hold benazepril - Continue amlodipine at 5 mg daily Dyslipidemia - stable - Continue atorvastatin 40mg oral daily Atrial fibrillation CAD Hx CABG 03/2019 Hx CVA w/ left leg hemiparesis - Daughter is finding name of mineral ore processing labourer who worked with patient in 2018 for F/U appointment - Stop aspirin and eliquis for at least 2 weeks on discharge - F/U appointment in 2 weeks w/ mineral ore processing labourer to discuss stopping Eliquis and aspirin or just continuing aspirin. - Continue metoprolol - Continuous cardiac monitoring Systolic CHF - Lasix 20mg IV as needed for fluid overload Hypomagnesemia - resolved PROPHYLAXIS GI- Pantoprazole 40mg BID DVT- Stockings, no anticoagulation as patient has low hemoglobin, probable GI bleed CODE STATUS FULL CODE SOCIAL Pt lives at home by herself. Uses walker to get around. Daughter lives in [place] DISPOSITION Patient is admitted on observation to the hospital for acute anemia, acute renal failure, demand ischemia. Started on fluids, GI prophylaxis. PT consulted. She is too weak for home discharge and hemoglobin remains low, but improved. Will be cleared for discharge pending placement. - Patient Instructions Diet: Heart Healthy Diet, Low Sodium Activity: As Tolerated Driving: Do Not Drive Showering/Bathing: May Shower Notify Provider of: Fever, Increased Pain, Nausea and/or Vomiting Other/Special Instructions: Follow-up with primary care provider within 7-10 days of discharge, sooner if needed. The blood in your stool appears to be related to your Eliquis (blood thinner). This was stopped prior to discharge. You should see cardiology and can discuss this with your primary care provider if they want you to resume this. Continue PT/OT at SNF. Take your blood pressure twice a day and record this in a journal. Bring this with to all medical appointments. Take your weight daily and record this in a journal. Bring this with to all medical appointments. - Discharge Plan *PRESCRIPTION DRUG MONITORING PROGRAM REVIEWED*: Not Applicable *COPY OF PRESCRIPTION DRUG MONITORING REPORT IN PATIENT JAMEY: Not Applicable Prescriptions/Med Rec: Ferrous Sulfate 324 mg PO BIDAC #30 tab.ec Magnesium Oxide 400 mg PO DAILY #5 tablet amLODIPine [Norvasc] 5 mg PO DAILY #20 tablet Docusate Sodium/Sennosides [Senna Plus] 2 tab PO DAILY #30 tablet Ascorbic Acid [Vitamin C] 500 mg PO BIDAC #30 tablet Home Medications: Home Meds Acetaminophen [Tylenol Extra Strength] 500 mg pe PO BID PRN 12/28/19 [History] Metoprolol Tartrate 12.5 mg PO BID 12/28/19 [History] Nitroglycerin [Nitrostat] 0.4 mg SL ASDIRECTED 12/28/19 [History] Pantoprazole Sodium [Protonix] 40 mg PO DAILY 12/28/19 [History] Potassium Chloride [Klor-Con M20] 20 meq PO DAILY 12/28/19 [History] atorvaSTATin Calcium [Lipitor] 40 mg PO DAILY 12/28/19 [History] Ascorbic Acid [Vitamin C] 500 mg PO BIDAC #30 tablet 01/04/20 [Rx] Docusate Sodium/Sennosides [Senna Plus] 2 tab PO DAILY #30 tablet 01/04/20 [Rx] Ferrous Sulfate 324 mg PO BIDAC #30 tab.ec 01/04/20 [Rx] Magnesium Oxide 400 mg PO DAILY #5 tablet 01/04/20 [Rx] amLODIPine [Norvasc] 5 mg PO DAILY #20 tablet 01/04/20 [Rx] Oxygen Therapy Mode: Room Air Patient Handouts: Heart Failure, Self Care Forms: ED Department Discharge Referrals: Vivek Rosales MD [Primary Care Provider] - 01/17/20 1:00 pm - Discharge Summary/Plan Comment DC Time >30 min.: Yes (60 minutes ) - General Info Date of Service: 01/04/20 Admission Dx/Problem (Free Text: Admission Diagnosis/Problem Admission Diagnosis/Problem Fall at home, symptomatic anemia Functional Status: Reports: Pain Controlled, Tolerating Diet, Ambulating, Urinating. Denies: New Symptoms - Review of Systems General: Reports: No Symptoms, Weakness (improved ). Denies: Fever, Fatigue, Malaise, Chills HEENT: Reports: No Symptoms. Denies: Headaches, Sore Throat Pulmonary: Reports: No Symptoms. Denies: Shortness of Breath, Pleuritic Chest Pain, Cough, Sputum, Wheezing Cardiovascular: Reports: No Symptoms. Denies: Chest Pain, Palpitations, Dyspnea on Exertion, Edema Gastrointestinal: Reports: No Symptoms. Denies: Abdominal Pain, Constipation, Diarrhea, Nausea, Vomiting Genitourinary: Reports: No Symptoms. Denies: Pain Musculoskeletal: Reports: No Symptoms Skin: Reports: No Symptoms. Denies: Cyanosis Neurological: Reports: No Symptoms. Denies: Confusion Psychiatric: Reports: No Symptoms - Patient Data Vitals - Most Recent: Last Vital Signs Temp 98.1 F 01/04/20 08:01 Pulse 70 01/04/20 08:06 Resp 20 01/04/20 08:01 BP 146/55 H 01/04/20 08:06 Pulse Ox 98 01/04/20 08:01 Orthostatic Blood Pressure [ 145/75 Sitting] Orthostatic Blood Pressure [ 133/62 Supine] Weight - Most Recent: 129 lb 14.4 oz I&O - Last 24 hours: Intake & Output 01/03/20 01/04/20 01/04/20 22:59 06:59 14:59 Intake Total 1340 500 Output Total 1150 1250 Balance 190 -750 Med Orders - Current: Current Medications Acetaminophen (Tylenol) 650 mg PO Q6H PRN PRN Reason: Pain (Mild 1-3) or Fever Last Admin: 01/04/20 02:36 Dose: 650 mg Documented by: Acetaminophen (Tylenol) 650 mg RECTAL Q6H PRN PRN Reason: Pain (Mild 1-3) or Fever Hydrocodone Bitart/Acetaminophen (Clubb 325-5 Mg) 1 tab PO Q6H PRN PRN Reason: Pain (moderate 4-6) Amlodipine Besylate (Norvasc) 5 mg PO DAILY VALERIA Last Admin: 01/04/20 08:06 Dose: 5 mg Documented by: Ascorbic Acid (Vitamin C) 500 mg PO BIDAC [facility] Last Admin: 01/04/20 05:33 Dose: 500 mg Documented by: Diphenhydramine HCl (Benadryl) 25 mg IVPUSH Q4H PRN PRN Reason: Restlessness or Allergies Ferrous Sulfate (Ferrous Sulfate) 324 mg PO BIDAC [facility] Last Admin: 01/04/20 05:33 Dose: 324 mg Documented by: Hydralazine HCl (Apresoline) 10 mg IVPUSH Q6H PRN PRN Reason: Hypertension Magnesium Oxide (Magnesium Oxide) 400 mg PO BID [facility] Last Admin: 01/04/20 08:07 Dose: 400 mg Documented by: Metoprolol Tartrate (Lopressor) 12.5 mg PO BID [facility] Last Admin: 01/04/20 08:06 Dose: 12.5 mg Documented by: Ondansetron HCl (Zofran) 4 mg IVPUSH Q4H PRN PRN Reason: Nausea and Vomiting Pantoprazole Sodium (Protonix) 40 mg PO BIDAC [facility] Last Admin: 01/04/20 05:33 Dose: 40 mg Documented by: Senna/Docusate Sodium (Senna Plus) 2 tab PO BID [facility] Last Admin: 01/04/20 08:07 Dose: 2 tab Documented by: Sucralfate (Carafate) 2 gm PO BEDTIME [facility] Last Admin: 01/03/20 20:50 Dose: 2 gm Documented by: Discontinued Medications Ferrous Sulfate (Ferrous Sulfate) 324 mg PO WITHBREAKFAST [facility] Furosemide (Lasix) 20 mg IVPUSH ONETIME ONE Stop: 12/28/19 17:13 Last Admin: 12/28/19 18:24 Dose: 20 mg Documented by: Sodium Chloride (Normal Saline) 1,000 mls @ 50 mls/hr IV ASDIRECTED [facility] Last Admin: 12/29/19 04:15 Dose: 50 mls/hr Documented by: Magnesium Sulfate 4 gm/ Premix 50 mls @ 12.5 mls/hr IV ONETIME ONE Stop: 12/30/19 12:49 Last Admin: 12/30/19 09:39 Dose: 12.5 mls/hr Documented by: Sodium Phosphate 15 mmole/ (Sodium Chloride) 255 mls @ 85 mls/hr IV ONETIME ONE Stop: 12/30/19 16:59 Last Admin: 12/30/19 13:18 Dose: 85 mls/hr Documented by: Ferric Sodium Gluconate Complex 250 mg/ Sodium Chloride 120 mls @ 60 mls/hr IV ONETIME ONE Stop: 12/31/19 11:14 Last Admin: 12/31/19 09:32 Dose: 60 mls/hr Documented by: Magnesium Sulfate 2 gm/ Premix 50 mls @ 25 mls/hr IV ONETIME ONE Stop: 01/02/20 10:59 Last Admin: 01/02/20 09:12 Dose: 25 mls/hr Documented by: Ferric Sodium Gluconate Complex 250 mg/ Sodium Chloride 120 mls @ 60 mls/hr IV ONETIME ONE Stop: 01/02/20 12:27 Last Admin: 01/02/20 11:17 Dose: 60 mls/hr Documented by: Magnesium Hydroxide (Milk Of Magnesia) 30 ml PO ONETIME ONE Stop: 12/29/19 08:07 Last Admin: 12/29/19 09:20 Dose: 30 ml Documented by: Rosuvastatin Calcium (Crestor) 10 mg PO DAILY VALERIA - Exam Quality Assessment: Reports: DVT Prophylaxis. Denies: Supplemental Oxygen General: Reports: Alert, Oriented, Cooperative, No Acute Distress HEENT: Reports: Pupils Equal, Pupils Reactive, Mucous Membr. Moist/[place] Neck: Reports: Supple, Trachea Midline Lungs: Reports: Clear to Auscultation, Normal Respiratory Effort Cardiovascular: Reports: Regular Rate, Regular Rhythm GI/Abdominal Exam: Normal Bowel Sounds, Soft, Non-Tender, No Distention (Female) Exam: Deferred Rectal (Female) Exam: Deferred Back Exam: Reports: Normal Inspection, Full Range of Motion Extremities: Normal Inspection, Normal Range of Motion, Non-Tender, Normal Capillary Refill Skin: Reports: Warm, Intact Neurological: Reports: No New Focal Deficit Psy/Mental Status: Reports: Alert, Normal Affect, Normal Mood
== END 2020-01-04 11:30 | DRG 683 ==
LOC: JD.ED 18:29 → JD.MS 12-28 16:40 → INTOOBSV 12-28 16:40 → OBSVTOIN 01-01 09:54 → JD.MS 01-03 07:49
PROVIDERS: ADMIT Family Medicine; ATTEND Family Medicine
DX: R53.1 Weakness (principal); R29.6 Repeated falls; N17.9 Acute kidney failure, unspecified; E87.1 Hypo-osmolality and hyponatremia; I24.8 Other forms of acute ischemic heart disease; I11.9 Hypertensive heart disease without heart failure; I50.32 Chronic diastolic (congestive) heart failure; H54.7 Unspecified visual loss; I48.20 Chronic atrial fibrillation, unspecified; I50.42 Chronic combined systolic (congestive) and diastolic (congestive) heart failure; I69.354 Hemiplegia and hemiparesis following cerebral infarction affecting left non-dominant side; D50.0 Iron deficiency anemia secondary to blood loss (chronic); Z86.010 Personal history of colon polyps; N39.3 Stress incontinence (female) (male); E86.1 Hypovolemia; Z98.42 Cataract extraction status, left eye; Z98.41 Cataract extraction status, right eye; Z20.828 Contact with and (suspected) exposure to other viral communicable diseases; Z79.01 Long term (current) use of anticoagulants; I11.0 Hypertensive heart disease with heart failure; E78.5 Hyperlipidemia, unspecified; E83.42 Hypomagnesemia; I73.9 Peripheral vascular disease, unspecified; I25.10 Atherosclerotic heart disease of native coronary artery without angina pectoris; E78.00 Pure hypercholesterolemia, unspecified; E83.39 Other disorders of phosphorus metabolism; I25.2 Old myocardial infarction; Z95.1 Presence of aortocoronary bypass graft; Z79.899 Other long term (current) drug therapy; Z79.82 Long term (current) use of aspirin; Z88.1 Allergy status to other antibiotic agents
CPT/HCPCS: 36415 ×5; 71045; 80048 ×3; 80053 ×2; 81001; 82272; 82607; 82728; 82746; 83540; 83615; 83735 ×4; 83880; 84100 ×3; 84443; 84466; 84484 ×2; 85007; 85014 ×2; 85018 ×2; 85025 ×3; 85027; 85045; 85610; 85730; 93005; 97116 ×3; 97161; 97165; 97530 ×3; 99285; A9270 ×43; J1940; J2916; J3475; J7030; J7050 ×2; U0002; 93010; 96365; 96366; 96367; 97110-GO; 97110-GP; 97535-GO; G0378